=== PATIENT | female | born 1980 | race Caucasian/White ===

== ENCOUNTER 2024-05-11 19:23 | Outpatient (REF) | payer BC, OTHER, SELFPAY ==
[2024-05-15 00:11] LABS: Age Gdln ACOG Testing Note (.); HPV Aptima Negative (Negative); IGP, Aptima HPV, rfx 16/18,45 Note (.)
== END 2024-05-11 19:24 | disposition home or self-care (01) ==
LOC: LAB 19:23
PROVIDERS: Visit Provider Physician Assistant
DX: Z01.419 Encounter for gynecological examination (general) (routine) without abnormal findings (principal)
CPT/HCPCS: 87624; 88175

== ENCOUNTER 2025-05-17 20:01 | Outpatient (REF) | payer BC, OTHER, SELFPAY ==
--- OUTSIDE RECORDS SUMMARY | 2025-05-17 10:00 | XMS_ITS | Encounter Summary ---
Author Organization [facility] Address [address] [place] [address] Care Team Providers Care Rehab Director Occupational Therapist Name Role Phone Fatuma Leon MD Primary Care Provider [phone] Reason for Visit * Reason Comments Well Women Visit Encounter Details Date Type Department Care Team (Late st Contact Info) Description 05/17/2025 10:00 AM EDT Office Visit [facility] [address] [id number] Lacie Lan PA [address] [place] [address] Well woman exam with routine gynecological exam; Encounter for screening mammogram for malignant neoplasm of breast Social History Tobacco Use Types Packs/Day Years Used Date Smoking Tobacco: Never Assessed Comments Unknown Sex and Gender Information Value Date Recorded Sex Assigned at Female 05/09/2024 8:15 AM EDT Legal Sex Female 6:47 PM EDT Gender Identity Female 05/09/2024 8:15 AM EDT Sexual Orientation Straight 05/09/2024 8: 15 AM EDT documented as of this encounter Last Filed Vital Signs Vital Sign Reading Time Taken Comments Blood Pressure 110/82 05/17/2025 10:15 AM EDT Pulse - - Temperature - - Respiratory Rate - - Oxygen Saturation - - Inhaled Oxygen Concentration - - Weight 57.8 kg (127 lb 8 oz) 05/17/2025 10:15 AM EDT Height - - Body Mass Index 21.89 05/11/2024 10:08 AM EDT documented in this encounter Progress Notes * DON Maya - 05/17/2025 10:00 AM EDT Images from the original note were not included. Reason for Appointment: Patient ID: Atiya Castañeda is a 44 y.o. female who presents for Well Women Visit Patient presents today for Annual Exam. MEDICATIONS Current Outpatient Medications Medication Instructions amphetamine-dextroamphetamine XR (Adderall XR) 20 MG 24 hr capsule ALLERGIES No Known Allergies PROBLEMS Active Ambulatory Problems Diagnosis Date Noted No Active Ambulatory Problems Resolved Ambulatory Problems Diagnosis Date Noted No Resolved Ambulatory Problems No Additional Past Medical History HISTORY PAST MEDICAL HISTORY SOCIAL HISTORY History reviewed. No pertinent past medical history. Social History Tobacco Use Smoking status: Not on file Smokeless tobacco: Not on file Substance Use Topics Alcohol use: Not on file Drug use: Not on file FAMILY HISTORY No family history on file. SURGICAL HISTORY Past Surgical History: Procedure Laterality Date SALPINGECTOMY 2020 REVIEW OF SYSTEMS Review of Systems: Review of Systems Constitutional: Negative. HENT: Negative. Eyes: Negative. Respiratory: Negative. Cardiovascular: Negative. Gastrointestinal: Negative. Genitourinary: Negative. Musculoskeletal: Negative. Skin: Negative. Neurological: Negative. All other systems reviewed and are negative. Hematological: Negative. Endocrine: Negative. Allergic/Immunologic: Negative. OBJECTIVE Objective: Physical Exam Constitutional: Appearance: Normal appearance. Genitourinary: Genitourinary Comments: Cystic breasts,more pronounced at the above area Right Adnexa: not tender and no mass present. Left Adnexa: not tender and no mass present. No cervical discharge. Breasts: Breasts are soft. Right: Normal. Left: Normal. HENT: Head: Normocephalic. Nose: Nose normal. Mouth/Throat: Mouth: Mucous membranes are moist. Cardiovascular: Rate and Rhythm: Normal rate. Pulmonary: Effort: Pulmonary effort is normal. Chest: Abdominal: General: Bowel sounds are normal. Palpations: Abdomen is soft. Musculoskeletal: General: Normal range of motion. Cervical back: Normal range of motion. Neurological: General: No focal deficit present. Mental Status: She is alert. Skin: General: Skin is warm and dry. Psychiatric: Mood and Affect: Mood normal. Vitals and nursing note reviewed. Exam conducted with a regulatory process manager present. Vitals: Estimated body mass index is 21.89 kg/m?? as calculated from the following: Height as of 05/11/24: 5' 4 . Weight as of this encounter: 127 lb 8 oz. BP: 110/82 No LMP recorded. ASSESSMENT & PLAN ICD-10-CM 1. Well woman exam with routine gynecological exam Z01.419 THIN PREP TIS PAP AND HR HPV DNA 2. Encounter for screening mammogram for malignant neoplasm of breast Z12.31 Bilateral screening mammogram Bilateral screening mammogram Annual Exam: Patient presents today for an annual exam. Patient states she is doing well and has no complaints. Pap was obtained without difficulty. Orders Placed This Encounter Procedures Bilateral screening mammogram Patient given diagnostic mammogram due to family history and pt feels recent change to the right breast as diagramed Follow Up: Patient is to return in one year for annual unless needed otherwise. Documented by Nadege Funes NP on behalf of: DON Maya documented in this encounter Plan of Treatment Upcoming Encounters Date Type Department Care Team (Late st Contact Info) Description 05/23/2026 10:00 AM EDT Procedure Visit [facility] [address] [place] [address] Lacie Lan PA [address] [place] [address] Scheduled Orders Name Type Priority Associated Diagnoses Orde r Schedule THIN PREP TIS PAP AND HR HPV DNA Pathology and Cytology Routine Well woman exam with routine gynecological exam Ordered: 05/17/2025 Bilateral diagnostic mammogram Imaging Routine Well woman exam with routine gynecological exam Encounter for screening mammogram for malignant neoplasm of breast Expected: 05/17/2025 (Approximate), Expires: 07/17/2026 documented as of this encounter Visit Diagnoses Diagnosis Well woman exam with routine gynecological exam Routine gynecological examination Encounter for screening mammogram for malignant neoplasm of breast documented in this encounter Care Teams Rehab Director Occupational Therapist Relationship Specialty Start Date End Date Fatuma Leon MD PCP - General Family Medicine 05/11/24 documented as of this encounter
--- OUTSIDE RECORDS SUMMARY | 2025-05-17 20:05 | XMS_ITS | Clinical Summary ---
Author Organization [facility] Address [id number] [address] [place] [address] Care Team Providers Care Global Clinical Leader Name Role Phone Fatuma Leon MD Primary Care Provider [phone] Allergies No known active allergies Medications PNV no.95/ferrous fum/folic ac ( ORAL) Take by mouth. Active ferrous sulfate (IRON ORAL) Take by mouth. Active amphetamine-dex troamphetamine XR (ADDERALL XR) 15 mg 24 hr capsule Take 1 capsule (15 mg total) by mouth. 04/18/2024 Active Active Problems Problem Noted Date Diagnosed Date Elderly multigravida in first trimester 05/07/20 18 Family History Medical History Relation Name Comments Heart attack Father Hypertension Father Diabetes Maternal Grandfather Heart disease Maternal Grandfather Alzheimer's disease Maternal Grandmother Breast cancer Maternal Grandmother Heart disease Paternal Grandfather Cancer Paternal Grandmother BREAST Relation Name Status Comments Father Maternal Grandfather Maternal Grandmother Paternal Grandfather Paternal Grandmother Social History Tobacco Use Types Packs/Day Years Used Date Smoking Tobacco: Former Cigarettes Smokeless Tobacco: Never Tobacco Cessation:Counseling Given: Not Answered Alcohol Use Standard Drinks/Week Comments Yes 0 (1 standard drink = 0.6 oz pur e alcohol) 1 every couple weeks PHQ-2 Answer Date Recorded Total Score 0 05/19/2024 Childcare Answer Date Recorded Childcare Unknown 02/11/2019 Employment Answer Date Recorded Employment Unknown 02/11/2019 Hunger Screening Answer Date Recorded Within the past 12 months we worried whether our food would run out before we got money to buy more. Never True 05/19/2024 Within the past 12 months th e food we bought just didn't last and we didn't have money to get more. Never True 05/19/2024 Purpose - Life Answer Date Recorded Purpose and direction in life Unknown Comments No Sex and Gender Information Value Date Recorded Sex Assigned at Not on file Legal Sex Female 11:56 AM EDT Gender Identity Not on file Sexual Orientation Not on file Last Filed Vital Signs Vital Sign Reading Time Taken Comments Blood Pressure 118/68 05/19/2024 11:14 AM EDT Pulse 75 05/19/2024 11:14 AM EDT Temperature 36.9 C (98.4 F) 05/19/2024 11:14 AM EDT Respiratory Rate 16 02/06/2018 7:30 PM EDT Oxygen Saturation 97% 05/19/2024 11:14 AM EDT Inhaled Oxygen Concentration - - Weight 68.3 kg (150 lb 9.6 oz) 05/19/2024 11:14 AM EDT Height 162.6 cm (5' 4 ) 05/19/2024 11:14 AM EDT Body Mass Index 25.85 05/19/2024 11:14 AM EDT Plan of Treatment Health Maintenance Due Date Last Done Comments Adult BMI Follow Up Plan 2000 Pap Smear 2003 Influenza Vaccine 05/03/2025 Adult BMI Screening 05/19/2025 05/19/2024 Depression Screening 05/19/2025 05/19/2024 Tobacco Screening 05/19/2025 05/19/2024 DTaP,Tdap and Td Vaccines (2 - Td or Tdap) 05/29/2027 05/29/2017 Medical Devices Not on file Insurance [employer] Care Teams Global Clinical Leader Relationship Specialty Start Date End Date Fatuma Leon MD [address] [place] [id number] PCP - General Internal Medicine 05/19/24
--- OUTSIDE RECORDS SUMMARY | 2025-05-17 20:05 | XMS_ITS | Encounter Summary ---
Author Organization [facility] Address [address] [place] [address] Care Team Providers Care Railway Switch Operator Name Role Phone Fatuma Leon MD Primary Care Provider [phone] Encounter Details Date Type Department Care Team (Late Contact Info) Description 05/19/2024 Orders Only [facility] [address] [place] [id number] Corinne Dennis MA [address] [place] [address] Social History Tobacco Use Types Packs/Day Years Used Date Smoking Tobacco: Never Assessed Comments Unknown Sex and Gender Information Value Date Recorded Sex Assigned at Female 05/09/2024 8:15 AM EDT Legal Sex Female 6:47 PM EDT Gender Identity Female 05/09/2024 8:15 AM EDT Sexual Orientation Straight 05/09/2024 8: 15 AM EDT documented as of this encounter Plan of Treatment Upcoming Encounters Date Type Department Care Team (Late st Contact Info) Description 05/23/2026 10:00 AM EDT Procedure Visit [facility] [address] [place] [address] Lacie Lan PA [address] [place], [place] [id number] documented as of this encounter Procedures Procedure Name Priority Date/Time Associated Diagnosis Comments PAP SMEAR Routine 05/11/2024 12:00 AM EDT documented in this encounter Results * Pap Smear (05/11/2024 12:00 AM EDT) Swab Cervical swab / Unknown us [facility] ORDERABLES Final Re sult [facility] documented in this encounter Visit Diagnoses Not on filedocumented in this encounter Care Teams Railway Switch Operator Relationship Specialty Start Date End Date Fatuma Leon MD PCP - General Family Medicine 05/11/24 documented as of this encounter
--- OUTSIDE RECORDS SUMMARY | 2025-05-17 20:05 | XMS_ITS | Encounter Summary ---
Author Organization [facility] Address [address] [place] [address] Care Team Providers Care Rn Referral Name Role Phone Fatuma Leon MD Primary Care Provider [phone] Encounter Details Date Type Department Care Team (Latest Contact Info) Description 05/17/2025 Travel Social History Tobacco Use Types Packs/Day Years [...] 10:00 AM EDT Procedure Visit [facility] [address] [place] [phone] Lacie Lan PA [address] [place], [facility] documented as of this encounter Visit Diagnoses Not on filedocumented in this encounter Care Teams Rn Referral Relationship Specialty Start Date End Date Fatuma Leon MD PCP - General Family Medicine 05/11/24 documented as of this encounter
--- OUTSIDE RECORDS SUMMARY | 2025-05-17 20:05 | XMS_ITS | Clinical Summary ---
Author Organization [facility] Address [address] [place] [address] Care Team Providers Care Electronic Operator Name Role Phone Fatuma Leon MD Primary Care Provider [phone] Allergies No known active allergies Medications amphetamine-dex troamphetamine XR (Adderall XR) 20 MG 24 hr capsule 5 Active amphetamine-dex troamphetamine XR (Adderall XR) 15 MG 24 hr capsule Take 15 mg by mouth in the morning. 4 05/17/20 25 Discontinued Encounters Date Type Department Care Team Description 05/17/2025 10:00 [place] [phone] Lacie Lan PA Well woman exam with routine gynecological exam; Encounter for screening mammogram for malignant neoplasm of breast 05/17/2025 Travel 05/17/2025 Bamboo flowsheet [facility] [address] [place] [phone] Lacie Lan PA from Last 3 Months Social History Tobacco Use Types Packs/Day Years Used Date Smoking Tobacco: Never Assessed Comments Unknown Sex and Gender Information Value Date Recorded Sex Assigned at Female 05/09/2024 8:15 AM EDT Legal Sex Female 6:47 PM EDT Gender Identity Female 05/09/2024 8:15 AM EDT Sexual Orientation Straight 05/09/2024 8: 15 AM EDT Last Filed Vital Signs Vital Sign Reading Time Taken Comments Blood Pressure 110/82 05/17/2025 10:15 AM EDT Pulse - - Temperature - - Respiratory Rate - - Oxygen Saturation - - Inhaled Oxygen Concentration - - Weight 57.8 kg (127 lb 8 oz) 05/17/2025 10:15 AM EDT Height 162.6 cm (5' 4 ) 05/11/2024 10:08 AM EDT Body Mass Index 21.89 05/11/2024 10:08 AM EDT Plan of Treatment Upcoming Encounters Date Type Department Care Team (Late st Contact Info) Description 05/23/2026 10:00 AM EDT Procedure Visit [facility] [address] [address] Lacie Lan PA [address] [place], [place] [id number] Insurance [facility] MEDICA[employer] Care Teams Electronic Operator Relationship Specialty Start Date End Date Fatuma Leon MD PCP - General Family Medicine 05/11/24
--- OUTSIDE RECORDS SUMMARY | 2025-05-17 20:08 | XMS_ITS | CCD ---
Author Organization [facility] CliniSyid Care Team Providers Care Vocational Placement Specialist Name Role Phone LU, DR RODGERS Attending Unavailable LU, DR RODGERS Admitting Unavailable LU, DR RODGERS Primary Care Unavailable KARASIK, DR PEREZ Admitting Unavailable KARASIK, DR PEREZ Consulting Unavailable LU, DR RODGERS Primary Care Unavailable KARASIK, DR PEREZ Attending Unavailable WEST, DR MARCELINO Steven Consulting Unavailable LU, DR RODGERS Consulting Unavailable LU, DR RODGERS Attending Unavailable LU, DR RODGERS Admitting Unavailable LU, DR RODGERS Primary Care Unavailable KARASIK, DR PEREZ Consulting Unavailable LU, DR RODGERS Consulting Unavailable AGUBOSIMSCOOBY Consulting Unavailable LU, DR RODGERS Procedure Practitioner Unavailab le LU, DR RODGERS Attending Unavailable LU, DR RODGERS Admitting Unavailable LU, DR RODGERS Primary Care Unavailable LU, DR RODGERS Attending Unavailable LU, DR RODGERS Admitting Unavailable LU, DR RODGERS Primary Care Unavailable GARCÍA, JUSTA Consulting Unavailable RAKAN AREVALO Attending Unavailable RAKAN AREVALO Admitting Unavailable LU, DR RODGERS Primary Care Unavailable CHRISTOPHER, DR MARCELINO Steven Consulting Unavailable LU, DR RODGERS Consulting Unavailable RAKAN AREVALO Consulting Unavailable KARASIK, DR PEREZ Admitting Unavailable KARASIK, DR PEREZ Consulting Unavailable LU, DR RODGERS Primary Care Unavailable KARASIK, DR PEREZ Attending Unavailable KARASIK, DR PEREZ Admitting Unavailable KARASIK, DR PEREZ Consulting Unavailable LU, DR RODGERS Primary Care Unavailable KARASIK, DR PEREZ Attending Unavailable KARASIK, DR PEREZ Admitting Unavailable LU, DR RODGERS Primary Care Unavailable KARLUCASK, DR PEREZ Attending Unavailable LU, DR RODGERS Consulting Unavailable LU, DR RODGERS Attending Unavailable LU, DR RODGERS Primary Care Unavailable LU, DR RODGERS Admitting Unavailable LU, DR RODGERS Consulting Unavailable LU, DR RODGERS Attending Unavailable LU, DR RODGERS Primary Care Unavailable LU, DR RODGERS Admitting Unavailable ZIEBER, DR DANGELO Torres Consulting Unavailable KARASIK, DR PEREZ Admitting Unavailable KARASIK, DR PEREZ Consulting Unavailable LU, DR RODGERS Primary Care Unavailable MISC, DOCTOR Referring Unavailable KARASIK, DR PEREZ Attending Unavailable LU, DR RODGERS Attending Unavailable LU, DR RODGERS Admitting Unavailable LU, DR RODGERS Primary Care Unavailable LU, DR RODGERS Attending Unavailable LU, DR RODGERS Primary Care Unavailable LU, DR RODGERS Admitting Unavailable LU, DR RODGERS Consulting Unavailable LU, DR RODGERS Attending Unavailable LU, DR RODGERS Admitting Unavailable LU, DR RODGERS Primary Care Unavailable ANSON DC Consulting Unavailable LU, DR RODGERS Admitting Unavailable LU, DR RODGERS Primary Care Unavailable LU, DR RODGERS Attending Unavailable LACIE MAHONEY Attending Unavailable JUAN, FATUMA Bass Attending Unavailable VINCENT HARDING Referring Unavailable FATUMA MARTINEZ Primary Care Unavailable Fatuma Martinez MD Primary Care Provider Unavailable Primary Care Provider Unavailabl e Fatuma Martinez MD Primary Care Provider [phone] Fatuma Martinez MD Primary Care Provider [phone] Medications Current Medications Medication Drug Class(es) Dates Sig (Normalized) Sig (Original) 24 hr amphetamine aspartate 5 mg / amphetamine sulfate 5 mg / dextroamphetamine saccharate 5 mg / dextroamphetamine sulfate 5 mg extended release oral capsule (10 sources) Central Nervous System Stimulant Start: 05-13-2025 amphetamine-dext roamphetamine XR (Adderall XR) 20 MG 24 hr capsule 05/13/2025 Active Start: 04-18-2024 End: 05-17-2025 take 1 capsule by mouth in the morning, then take 1 capsule by mouth every twenty-four hours amphetamine-dextroamphetamine XR (Addera ll XR) 15 MG 24 hr capsule Take 15 mg by mouth in the morning. 04/18/2024 05/17/2025 Discontinued ferrous sulfate (1 source) ferrous sulfate (IRON ORAL) Take by mouth. Active PNV no.95/ferrous fum/folic ac ( ORAL) (1 source) PNV no.95/ferrou s fum/folic ac ( ORAL) Take by mouth. Active Problems Active Problems Problem Classification Problem Date Documented Date Episodic/Chronic Coagulation and hemorrhagic disorders (1 source) Thrombocytopenia, unspecified; Translations: [THROMBOCYTOPENIA UNSPECIFIED] Onset: 05-11-2021 Chronic Contraceptive and procreative management (5 sources) Encounter for sterilization; Translations: [ENCOUNTER FOR STERILIZATION] Onset: 02-10-2021 Episodic Other screening for suspected conditions (not mental disorders or infectious disease) (17 sources) Encounter for screening for malignant neoplasm of cervix; Translations: [Encounter for screening for Streptococcus B] Onset: 10-05-2020 Episodic Other skin disorders (1 source) Sebaceous cyst; Translations: [Sebaceous cyst] Onset: 05-19-2024 Episodic Substance-related disorders (1 source) Nicotine dependence, cigarettes, uncomplicated; Translations: [NICOTINE DEPEND CIGARETTES UNCOMP] Onset: 05-11-2021 Chronic Unclassified (1 source) PERSONAL HISTORY OF COVID-19; Translations: [PERSONAL HISTORY OF COVID-19] Onset: 05-11-2021 Unclassified (1 source) Establish Care Onset: 05-19-2024 Unclassified (1 source) Hair/Scalp Problem Onset: 05-19-2024 Past or Other Problems Problem Classification Problem Date Documented Date Episodic/Chronic Diabetes or abnormal glucose tolerance complicating ; childbirth; or the puerperium (10 sources) Gestational diabetes mellitus in childbirth, unspecified control; Translations: [Gestational diabetes mellitus in , unspecified control] Onset: 12-02-2020 Episodic Immunizations and screening for infectious disease (3 sources) Encounter for screening for human papillomavirus (HPV); Translations: [Exposure to sexually transmissible disorder] Onset: 07-29-2021 05-11-2024 Episodic Mood disorders (1 source) Mood disorders Onset: 05-19-2024 05-19-2024 OB-related trauma to perineum and vulva (1 source) First degree perineal laceration during delivery; Translations: [FIRST DEG PERINEAL LAC DUR DELIV] Onset: 01-18-2021 Episodic Other complications of (4 sources) Supervision of elderly multigravida, third trimester; Translations: [SUP ELDER MULTIGRAVIDA THIRD TRI] Onset: 01-04-2021 Episodic Other complications of (1 source) Maternal care for excessive growth, third trimester, not applicable or unspecified; Translations: [MAT CARE EXCSS FTL GRTH 3RD TRI UNS] Onset: 12-27-2020 Episodic Other complications of (1 source) Multigravida of advanced maternal age; Translations: [Supervision of elderly multigravida, first trimester] Onset: 05-07-2018 05-07-2018 Episodic Other and delivery including normal (11 sources) Encounter for routine follow-up; Translations: [Encounter for supervision of normal , unspecified, third trimester] Onset: 09-14-2020 Episodic Other skin disorders (1 source) Sebaceous cyst of skin; Translations: [Sebaceous cyst] 05-19-2024 Episodic Residual codes; unclassified (1 source) 39 weeks gestation of ; Translations: [39 WEEKS GESTATION OF ] Onset: 01-18-2021 Episodic Residual codes; unclassified (1 source) 38 weeks gestation of ; Translations: [38 WEEKS GESTATION OF ] Onset: 01-12-2021 Episodic Residual codes; unclassified (1 source) 36 weeks gestation of ; Translations: [36 WEEKS GESTATION OF ] Onset: 12-27-2020 Episodic Umbilical cord complication (1 source) Labor and delivery complicated by cord around neck, without compression, not applicable or unspecified; Translations: [L AND D COMP CORD NECK NO COMPRS NA/UNS] Onset: 01-18-2021 Episodic Results Test Name Value Interpretation Reference Range Facility IGP,APTIMA HPV,AGE GDLNon AGE GDLN ACOG TESTING Note . [facility] Comment on above: TESTS RESULT FLAG UN ITS REF RANGE LAB Clinician Provided Cytology Information Source.............Cervix;Endocervix No. of containers..01 ThinPrep Vial Age Algo ACOG Alie... 32 FLAG LEGEND: L-Low Normal,H-High Normal,LL-Alert Low,HH-Alert High <-Panic Low,>-Panic High,A-Abnormal,AA-Critical Abnormal Performed at: 01 =[address] [id number] Mimi Montes MD, HPV APTIMA Negative Negative [facility] Comment on above: This nucleic acid am plification test detects fourteen high- risk HPV types (16,18,31,33,35,39,45,51,52,56,58,59,66,68) without differentiation. Performed at: =[address] [id number] [employer]: Mimi Montes MD, Phone: [phone] Performed at: [address] [id number] [employer]: Mimi Montes MD, Phone: [phone] IGP, APTIMA HPV, RFX 16/18,45 Note . [facility] Comment on above: TESTS RESULT FLAG UN ITS REF RANGE LAB DIAGNOSIS: 02 NEGATIVE FOR INTRAEPITHELIAL LESION OR MALIGNANCY. Specimen adequacy: 02 Satisfactory for evaluation. Endocervical and/or squamous metaplastic cells (endocervical component) are present. Performed by: 02 Selvin Ravi [employer] Header (ASCP) . 02 Note: Note 02 The Pap smear is a screening test designed to aid in the detection of premalignant and malignant conditions of the uterine cervix. It is not a diagnostic procedure and should not be used as the sole means of detecting cervical cancer. Both false-positive and false-negative reports do occur. Test Methodology: Note 02 This liquid based ThinPrep(R) pap test was screened with the use of an image guided system. HPV Genotype Reflex Note 02 Criteria not met, HPV Genotype not performed. FLAG LEGEND: L-Low Normal,H-High Normal,LL-Alert Low,HH-Alert High <-Panic Low,>-Panic High,A-Abnormal,AA-Critical Abnormal Performed at: [address] [id number] Mimi Montes MD, BRUSH-SPATULA CERVIX ENDOCERVIX [facility] URETHRITIS/DISCHARGE PLUS VA GINITIS (HTRX)on 05-12-2024 ATOPOBIUM VAGINAE 0.000 [facility] ATOPOBIUM VAGINAE Not detected [facility] BVAB 2,3 (BACTERIAL VAGINOSIS ASSOCIATED BACTERIA 2, 3); MOBILUNCUS SPP 0.000 [facility] BVAB 2,3 (BACTERIAL VAGINOSIS ASSOCIATED BACTERIA 2, 3); MOBILUNCUS SPP Not detected [facility] MATTEO ALBICANS, PARAPSILOSIS, TROPICALIS 0.000 [facility] MATTEO ALBICANS, PARAPSILOSIS, TROPICALIS Not detected [facility] MATTEO GLABRATA 0.000 [facility] MATTEO GLABRATA Not detected [facility] MATTEO KRUSEI 0.000 [facility] MATTEO KRUSEI Not detected [facility] CHLAMYDIA TRACHOMATIS 0.000 [facility] CHLAMYDIA TRACHOMATIS Not detected [facility] GARDNERELLA VAGINALIS 0.000 [facility] GARDNERELLA VAGINALIS Not detected [facility] MEGASPHAERA (TYPES 1, 2) 0.000 [facility] MEGASPHAERA (TYPES 1, 2) Not detected [facility] MYCOPLASMA GENITALIUM 0.000 [facility] MYCOPLASMA GENITALIUM Not detected [facility] NEISSERIA GONORRHOEAE 0.000 [facility] NEISSERIA GONORRHOEAE Not detected [facility] TRICHOMONAS VAGINALIS 0.000 [facility] TRICHOMONAS VAGINALIS Not detected [facility] PAP ACOG PANEL 2: 30 to 65on 07-26-2021 . . Normal [facility] Comment on above: Result Comment: Perf ormed at: WB Performed By: #### [id number] #### [facility] [address] [address] [address] Patrick Araya Age Gdln ACOG Testing 30-65 [facility] Comment on above: Performed By: #### [id number] #### [facility] [address] [place] [address] Dr. Patrick Araya DIAGNOSIS: Comment Normal [facility] Comment on above: Result Comment: NEGA TIVE FOR INTRAEPITHELIAL LESION OR MALIGNANCY. Performed at: WB Performed By: #### [id number] #### [facility] [address] [address] [address] Patrick Araya HPV Aptima Negative Normal [facility] Comment on above: Result Comment: This nucleic acid amplification test detects fourteen high-risk HPV types (16,18,31,33,35,39,45,51,52,56,58,59,66,68) without differentiation. Performed at: =G Performed By: #### [id number] #### [facility] [address] [address] [address] Patrick Araya Methodology: Comment [facility] Comment on above: Result Comment: This liquid based ThinPrep(R) pap test was screened with the use of an image guided system. Performed at: WB Performed By: #### [id number] #### [facility] [address] [address] [address] Patrick Araya Note: Comment Normal [facility] Comment on above: Result Comment: The Pap smear is a screening test designed to aid in the detection of premalignant and malignant conditions of the uterine cervix. It is not a diagnostic procedure and should not be used as the sole means of detecting cervical cancer. Both false-positive and false-negative reports do occur. . Performed at: WB Performed By: #### [id number] #### [facility] [address] [place] [address] Dr. Patrick Araya Performed by: Comment Normal [place] Comment on above: Result Comment: Wendy Yeager, Apple Packing Header (ASCP) Performed at: WB Performed By: #### [id number] #### [facility] [address] [place] [address] Dr. Patrick Araya Specimen adequacy: Comment Normal [facility] Comment on above: Result Comment: Sati sfactory for evaluation. Endocervical and/or squamous metaplastic cells (endocervical component) are present. Performed at: WB Performed By: #### [id number] #### [facility] [address] [place] [address] Dr. Patrick Araya CBC AUTO DIFFon 02-10-2021 BASO # 0.0 103/ul Normal 0.0-0.1 [facility] Comment on above: Performed By: #### C BC #### [facility] [address] [place] [address] Marina Molly Basophils/100 WBC (Bld) 0.6 % Normal 0.2-2.0 [facility] Comment on above: Performed By: #### C BC #### [facility] [address] [place] [address] Marina Molly EO # 0.1 103/ul Normal 0.0-0.7 [facility] Comment on above: Performed By: #### C BC #### [facility] [address] [place] [address] Marina Molly Eosinophils/100 WBC (Bld) 2.2 % Normal 0.9-7.0 [facility] Comment on above: Performed By: #### C BC #### [facility] [address] [place] [address] Marina Molly Erythrocyte distribution width (RBC) [Ratio] 13.7 % Normal 11.0-15.0 [facility] Comment on above: Performed By: #### C BC #### [facility] [address] [place] [address] Marina Barnes Hematocrit (Bld) [Volume fraction] 38.1 % Normal 36.0-48.0 [facility] Comment on above: Performed By: #### C BC #### [facility] [address] [place] [address] Marina Barnes Hemoglobin (Bld) [Mass/Vol] 11.9 g/dL Critically low 12.0-16.0 [facility] Comment on above: Performed By: #### C BC #### [facility] [address] [place] [address] Marina Barnes IG # 0.00 10e3/ul Normal 0.00-0.03 [facility] Comment on above: Performed By: #### C BC #### [facility] [address] [place] [address] Marina Barnes IG % 0.0 % Normal 0.0-0.5 [facility] Comment on above: Performed By: #### C BC #### [facility] [address] [place] [address] Marina Barnes LYMPH # 1.9 103/ul Normal 1.2-3.8 [facility] Comment on above: Performed By: #### C BC #### [facility] [address] [place] [address] Marina Barnes Lymphocytes/100 WBC (Bld) 37.7 % Normal 20.5-60.0 [facility] Comment on above: Performed By: #### C BC #### [facility] [address] [place] [address] Marina Barnes MANUAL DIFF REQ NO Normal [facility] Comment on above: Performed By: #### C BC #### [facility] [address] [place] [address] Marina Barnes MCH (RBC) [Entitic mass] 25.3 pg Critically low 26.7-34.0 [facility] Comment on above: Performed By: #### C BC #### [facility] [address] [id number] Marina Barnes MCHC (RBC) [Mass/Vol] 31.2 g/dL Normal 29.9-35.2 [facility] Comment on above: Performed By: #### C BC #### [facility] [address] [id number] Marina Barnes MCV (RBC) [Entitic vol] 80.9 fL Critically low 81.0-99.0 [facility] Comment on above: Performed By: #### C BC #### [facility] [address] [place] [address] Marina Barnes MONO # 0.3 103/ul Normal 0.3-0.8 [facility] Comment on above: Performed By: #### C BC #### [facility] [address] [place] [address] Marina Barnes Monocytes/100 WBC (Bld) 6.6 % Normal 1.7-12.0 [facility] Comment on above: Performed By: #### C BC #### [facility] [address] [place], [place] [id number] Marina Barnes NEUT # 2.7 103/ul Normal 1.4-6.5 [facility] Comment on above: Performed By: #### C BC #### [facility] [address] [place], [place] [id number] Marina Barnes Neutrophils/100 WBC (Bld) 52.9 % Normal 43.0-75.0 [facility] Comment on above: Performed By: #### C BC #### [facility] [address] [place], [place] [id number] Marina Barnes Platelet mean volume (Bld) [Entitic vol] 9.0 fL Critically low 9.5-13.5 [facility] Comment on above: Performed By: #### C BC #### [facility] [address] [place], [place] [id number] Marina Molly PLT 172 103/ul Normal 150-450 [facility] Comment on above: Performed By: #### C BC #### [facility] [address] [place] [address] Marina Molly RBC 4.71 106/ul Normal 4.20-5.40 [facility] Comment on above: Performed By: #### C BC #### [facility] [address] [place], [place] [id number] Marina Molly WBC 5.0 103/ul Normal 4.0-11.0 [facility] Comment on above: Performed By: #### C BC #### [facility] [address] [place], [place] [id number] Marina Molly PREG QUANT HCGon 02-10-2021 HCG QUANT <1 Normal [facility] Comment on above: Performed By: #### C BC #### [facility] [address] [place] [address] Marina Molly HCG RANGE SEE BELOW Normal [facility] Comment on above: Result Comment: 5-50 0-1 WEEK 40-300 1-2 WEEKS 100-1,000 2-3 WEEKS 500-6,000 3-4 WEEKS 5,000-200,000 1-2 MONTHS 10,000-100,000 2-3 MONTHS 3,000-50,000 2ND TRIMESTER 1,000-50,000 3RD TRIMESTER Performed By: #### C BC #### [facility] [address] [place] [address] Marina Molly BNPon 02-06-2021 Natriuretic peptide B (Bld) [Mass/Vol] 83.0 pg/mL Normal <=450.0 [facility] Comment on above: Performed By: #### C BC #### [facility] [address] [place], [place] [id number] Marina Molly CBC AUTO DIFFon 02-06-2021 BASO # 0.0 103/ul Normal 0.0-0.1 [facility] Comment on above: Performed By: #### C BC #### [facility] [address] [place], [place] [id number] Marina Molly Basophils/100 WBC (Bld) 0.3 % Normal 0.2-2.0 [facility] Comment on above: Performed By: #### C BC #### [facility] [address] [place] [address] Marina Molly EO # 0.1 103/ul Normal 0.0-0.7 [facility] Comment on above: Performed By: #### C BC #### [facility] [address] [place], [place] [id number] Marina Omlly Eosinophils/100 WBC (Bld) 1.4 % Normal 0.9-7.0 [facility] Comment on above: Performed By: #### C BC #### [facility] [address] [place] [address] Marina Molly Erythrocyte distribution width (RBC) [Ratio] 13.8 % Normal 11.0-15.0 [facility] Comment on above: Performed By: #### C BC #### [facility] [address] [place] [address] Marina Molly Hematocrit (Bld) [Volume fraction] 39.9 % Normal 36.0-48.0 [facility] Comment on above: Performed By: #### C BC #### [facility] [address] [place] [address] Marina Molly Hemoglobin (Bld) [Mass/Vol] 12.7 g/dL Normal 12.0-16.0 [facility] Comment on above: Performed By: #### C BC #### [facility] [address] [place] [address] Marina Molly IG # 0.02 10e3/ul Normal 0.00-0.03 [facility] Comment on above: Performed By: #### C BC #### [facility] [address] [place] [address] Marian Molly IG % 0.3 % Normal 0.0-0.5 [facility] Comment on above: Performed By: #### C BC #### [facility] [address] [place] [address] Marina Molly LYMPH # 1.5 103/ul Normal 1.2-3.8 [facility] Comment on above: Performed By: #### C BC #### [facility] [address] [place], [place] [phone] Marina Molly Lymphocytes/100 WBC (Bld) 18.9 % Critically low 20.5-60.0 [facility] Comment on above: Performed By: #### C BC #### [facility] [address] [place], [place] [id number] Marina Molly MANUAL DIFF REQ NO Normal [facility] Comment on above: Performed By: #### C BC #### [facility] [address] [place], [place] [phone] Marina Molly MCH (RBC) [Entitic mass] 25.6 pg Critically low 26.7-34.0 [facility] Comment on above: Performed By: #### C BC #### [facility] [address] [place] [address] Marinadionisio Barnes MCHC (RBC) [Mass/Vol] 31.8 g/dL Normal 29.9-35.2 [facility] Comment on above: Performed By: #### C BC #### [facility] [address] [place] [address] Marinadionisio Estradaen MCV (RBC) [Entitic vol] 80.3 fL Critically low 81.0-99.0 [facility] Comment on above: Performed By: #### C BC #### [facility] [address] [place] [address] Marina Molly MONO # 0.5 103/ul Normal 0.3-0.8 [facility] Comment on above: Performed By: #### C BC #### [facility] [address] [place] [address] Marina Molly Monocytes/100 WBC (Bld) 6.3 % Normal 1.7-12.0 [facility] Comment on above: Performed By: #### C BC #### [facility] [address] [place], [place] [phone] Marina Molly NEUT # 5.6 103/ul Normal 1.4-6.5 [facility] Comment on above: Performed By: #### C BC #### [facility] [address] [place], [place] [id number] Marina Molly Neutrophils/100 WBC (Bld) 72.8 % Normal 43.0-75.0 [facility] Comment on above: Performed By: #### C BC #### [facility] [address] [place] [address] Marina Barnes Platelet mean volume (Bld) [Entitic vol] 9.1 fL Critically low 9.5-13.5 [facility] Comment on above: Performed By: #### C BC #### [facility] [address] [place] [address] Marina Barnes PLT 200 103/ul Normal 150-450 [facility] Comment on above: Performed By: #### C BC #### [facility] [address] [place] [address] Marina Barnes RBC 4.97 106/ul Normal 4.20-5.40 [facility] Comment on above: Performed By: #### C BC #### [facility] [address] [place] [address] Marina Barnes WBC 7.7 103/ul Normal 4.0-11.0 [facility] Comment on above: Performed By: #### C BC #### [facility] [address] [place], [place] [id number] Marina Barnes D-DIMERon 02-06-2021 D-DIMER 1.30 mg/L FEU Critically high 0.19-0.50 [facility] Comment on above: Performed By: #### D RUGRPD #### [facility] [address] [place] [address] Marina Molly D-DIMER COMMENTS SEE BELOW Normal [facility] Comment on above: Result Comment: Incr eases in D-Dimer concentration observed with thromboembolic events can be variable due to localization, size, and age of the thrombus. Therefore, a thromboembolic event cannot be diagnosed with certainty on the basis of the reference range. D-Dimers may also be elevated for a variety of disorders including: advanced age, , coronary disease, cancer, liver disease, infection, inflammation, hematoma, DIC, trauma, post-surgery, diabetes, thrombolytic or anticoagulant therapy, stress, and generalized hospitalization. Performed By: #### D RUGRPD #### [facility] [address] [place] [address] Marina Molly PROF 14(COMP METB)on 021 Albumin [Mass/Vol] 3.4 g/dL Critically low 3.5-5.0 [facility] Comment on above: Performed By: #### C BC #### [facility] [address] [place], [place] [id number] Marina Molly Albumin/Globulin [Mass ratio] 0.8 {ratio} Normal [facility] Comment on above: Performed By: #### C BC #### [facility] [facility] [address] [place], [place] [id number] Marina Molly ALP [Catalytic activity/Vol] 86 U/L Normal 38-126 [facility] Comment on above: Performed By: #### C BC #### [facility] [address] [place] [address] Marina Molly ALT [Catalytic activity/Vol] 35 U/L Normal 9-52 [facility] Comment on above: Performed By: #### C BC #### [facility] [address] [place], [place] [id number] Marina Molly Anion gap [Moles/Vol] 13.9 mmol/L Normal [facility] Comment on above: Performed By: #### C BC #### [facility] [address] [place], [place] [id number] Marina Molly AST [Catalytic activity/Vol] 22 U/L Normal 14-36 [facility] Comment on above: Performed By: #### C BC #### [facility] [address] [place], [place] [phone] Marina Molly Bilirubin [Mass/Vol] 0.4 mg/dL Normal 0.2-1.3 [facility] Comment on above: Performed By: #### C BC #### [facility] [address] [place], [place] [id number] Marina Molly Calcium [Mass/Vol] 8.4 mg/dL Normal 8.4-10.2 [facility] Comment on above: Performed By: #### C BC #### [facility] [address] [place] [id number] Marina Molly Chloride [Moles/Vol] 104 mmol/L Normal 98-107 [facility] Comment on above: Performed By: #### C BC #### [facility] [address] [id number] Marina Molly CO2 [Moles/Vol] 27.1 mmol/L Normal 22.0-30.0 [facility] Comment on above: Performed By: #### C BC #### [facility] [address] [place], [place] [phone] Marina Molly Creatinine [Mass/Vol] 0.68 mg/dL Normal 0.52-1.04 [facility] Comment on above: Performed By: #### C BC #### [facility] [address] [place] [address] Marina Molly EGFR-AF NIUEAN >60 Normal >=60 [facility] Comment on above: Performed By: #### C BC #### [facility] [address] [place] [address] Marina Molly EGFR-NON AF NIUEAN >60 Normal >=60 [facility] Comment on above: Performed By: #### C BC #### [facility] [address] [place], [place] [phone] Marina Molly Globulin (S) [Mass/Vol] 4.1 g/dL Normal [facility] Comment on above: Performed By: #### C BC #### [facility] [address] [place] [address] Marina Molly Glucose [Mass/Vol] 86 mg/dL Normal 74-106 [facility] Comment on above: Performed By: #### C BC #### [facility] [address] [place], [place] [phone] Marina Molly Potassium [Moles/Vol] 4.0 mmol/L Normal 3.4-5.0 [facility] Comment on above: Performed By: #### C BC #### [facility] [address] [place] [address] Marina Molly Protein [Mass/Vol] 7.5 g/dL Normal 6.1-8.2 [facility] Comment on above: Performed By: #### C BC #### [facility] [address] [place], [place] [address] Marina Molly Sodium [Moles/Vol] 141 mmol/L Normal 137-145 [facility] Comment on above: Performed By: #### C BC #### [facility] [address] [place], [place] [address] Marina Molly Urea nitrogen [Mass/Vol] 14.0 mg/dL Normal 7.0-17.0 [facility] Comment on above: Performed By: #### C BC #### [facility] [address] [place] [phone] Marina Molly Urea nitrogen/Creatinine [Mass ratio] 20.6 mg/mg Normal [facility] Comment on above: Performed By: #### C BC #### [facility] [address] [place] [id number] Marina Molly CBC AUTO DIFFon 01-07-2021 BASO # 0.0 103/ul Normal 0.0-0.1 [facility] Comment on above: Performed By: #### C BC #### [facility] [address] [place] [address] Marina Molly Basophils/100 WBC (Bld) 0.4 % Normal 0.2-2.0 [facility] Comment on above: Performed By: #### C BC #### [facility] [address] [place] [address] Marina Molly EO # 0.2 103/ul Normal 0.0-0.7 [facility] Comment on above: Performed By: #### C BC #### [facility] [address] [place] [phone] Marina Molly Eosinophils/100 WBC (Bld) 1.9 % Normal 0.9-7.0 [facility] Comment on above: Performed By: #### C BC #### [facility] [address] [place] [address] Marina Molly Erythrocyte distribution width (RBC) [Ratio] 13.9 % Normal 11.0-15.0 [facility] Comment on above: Performed By: #### C BC #### [facility] [address] [place] [address] Marina Molly Hematocrit (Bld) [Volume fraction] 28.8 % Critically low 36.0-48.0 [facility] Comment on above: Performed By: #### C BC #### [facility] [address] [place] [address] Marina Molly Hemoglobin (Bld) [Mass/Vol] 9.2 g/dL Critically low 12.0-16.0 [facility] Comment on above: Performed By: #### C BC #### [facility] [address] [place] [address] Marina Molly IG # 0.05 10e3/ul Critically high 0.00-0.03 [facility] Comment on above: Performed By: #### C BC #### [facility] [address] [place] [address] Marina Molly IG % 0.6 % Critically high 0.0-0.5 [facility] Comment on above: Performed By: #### C BC #### [facility] [address] [place] [address] Marina Molly LYMPH # 1.8 103/ul Normal 1.2-3.8 [facility] Comment on above: Performed By: #### C BC #### [facility] [address] [place] [address] Marina Barnes Lymphocytes/100 WBC (Bld) 23.4 % Normal 20.5-60.0 [facility] Comment on above: Performed By: #### C BC #### [facility] [address] [place] [address] Marina Barnes MANUAL DIFF REQ NO Normal [facility] Comment on above: Performed By: #### C BC #### [facility] [address] [place], [place] [phone] Marinadionisio Barnes MCH (RBC) [Entitic mass] 26.0 pg Critically low 26.7-34.0 [facility] Comment on above: Performed By: #### C BC #### [facility] [address] [id number] Marinadionisio Barnes MCHC (RBC) [Mass/Vol] 31.9 g/dL Normal 29.9-35.2 [facility] Comment on above: Performed By: #### C BC #### [facility] [address] [id number] Marinadionisio Barnes MCV (RBC) [Entitic vol] 81.4 fL Normal 81.0-99.0 [facility] Comment on above: Performed By: #### C BC #### [facility] [address] [place], [place] [phone] Marina Molly MONO # 0.7 103/ul Normal 0.3-0.8 [facility] Comment on above: Performed By: #### C BC #### [facility] [address] [place], [place] [phone] Marina Molly Monocytes/100 WBC (Bld) 9.3 % Normal 1.7-12.0 [facility] Comment on above: Performed By: #### C BC #### [facility] [address] [place], [place] [phone] Marina Molly NEUT # 5.0 103/ul Normal 1.4-6.5 [facility] Comment on above: Performed By: #### C BC #### [facility] [address] [place], [place] [phone] Marina Molly Neutrophils/100 WBC (Bld) 64.4 % Normal 43.0-75.0 [facility] Comment on above: Performed By: #### C BC #### [facility] [address] [place], [place] [phone] Marina Molly Platelet mean volume (Bld) [Entitic vol] 10.1 fL Normal 9.5-13.5 [facility] Comment on above: Performed By: #### C BC #### [facility] [address] [place], [place] [phone] Marina Molly PLT 97 103/ul Critically low 150-450 [facility] Comment on above: Performed By: #### C BC #### [facility] [address] [place], [place] [phone] Marina Molly RBC 3.54 106/ul Critically low 4.20-5.40 [facility] Comment on above: Performed By: #### C BC #### [facility] [address] [place], [place] [phone] Marina Molly WBC 7.7 103/ul Normal 4.0-11.0 [facility] Comment on above: Performed By: #### C BC #### [facility] [address] [place], [place] [phone] Marina Molly CBC AUTO DIFFon 01-06-2021 BASO # 0.0 103/ul Normal 0.0-0.1 [facility] Comment on above: Performed By: #### C BC #### [facility] [address] [place], [place] [phone] Marina Molly Basophils/100 WBC (Bld) 0.4 % Normal 0.2-2.0 [facility] Comment on above: Performed By: #### C BC #### [facility] [address] [place], [place] [phone] Marina Molly EO # 0.1 103/ul Normal 0.0-0.7 [facility] Comment on above: Performed By: #### C BC #### [facility] [address] [place], [place] [phone] Marina Molly Eosinophils/100 WBC (Bld) 1.1 % Normal 0.9-7.0 [facility] Comment on above: Performed By: #### C BC #### [facility] [address] [place], [place] [phone] Marina Molly Erythrocyte distribution width (RBC) [Ratio] 13.8 % Normal 11.0-15.0 [facility] Comment on above: Performed By: #### C BC #### [facility] [address] [place], [place] [phone] Marina Molly Hematocrit (Bld) [Volume fraction] 32.1 % Critically low 36.0-48.0 [facility] Comment on above: Performed By: #### C BC #### [facility] [address] [place], [place] [phone] Marina Molly Hemoglobin (Bld) [Mass/Vol] 10.3 g/dL Critically low 12.0-16.0 [facility] Comment on above: Performed By: #### C BC #### [facility] [address] [place], [place] [address] Marinadionisio Barnes IG # 0.07 10e3/ul Critically high 0.00-0.03 [facility] Comment on above: Performed By: #### C BC #### [facility] [address] [id number] Marina Molly IG % 0.9 % Critically high 0.0-0.5 [facility] Comment on above: Performed By: #### C BC #### [facility] [address] [place] [address] Marinadionisio Barnes LYMPH # 1.7 103/ul Normal 1.2-3.8 [facility] Comment on above: Performed By: #### C BC #### [facility] [address] [place] [address] aMrina Barnes Lymphocytes/100 WBC (Bld) 20.8 % Normal 20.5-60.0 [facility] Comment on above: Performed By: #### C BC #### [facility] [address] [place], [place] [phone] Marina Molly MANUAL DIFF REQ NO Normal [facility] Comment on above: Performed By: #### C BC #### [facility] [address] [place] [address] Marina Molly MCH (RBC) [Entitic mass] 25.9 pg Critically low 26.7-34.0 [facility] Comment on above: Performed By: #### C BC #### [facility] [address] [place] [address] Marinadionisio Barnes MCHC (RBC) [Mass/Vol] 32.1 g/dL Normal 29.9-35.2 [facility] Comment on above: Performed By: #### C BC #### [facility] [address] [place] [address] Marinadionisio Barnes MCV (RBC) [Entitic vol] 80.9 fL Critically low 81.0-99.0 [facility] Comment on above: Performed By: #### C BC #### [facility] [address] [place], [place] [address] Marina Estradaen MONO # 0.8 103/ul Normal 0.3-0.8 [facility] Comment on above: Performed By: #### C BC #### [facility] [address] [phone] Marina Estradaen Monocytes/100 WBC (Bld) 10.2 % Normal 1.7-12.0 [facility] Comment on above: Performed By: #### C BC #### [facility] [address] [phone] Marina Molly NEUT # 5.4 103/ul Normal 1.4-6.5 [facility] Comment on above: Performed By: #### C BC #### [facility] [address] [phone] Marina Estradaen Neutrophils/100 WBC (Bld) 66.6 % Normal 43.0-75.0 [facility] Comment on above: Performed By: #### C BC #### [facility] [address] [phone] Marina Barnes Platelet mean volume (Bld) [Entitic vol] 9.7 fL Normal 9.5-13.5 [facility] Comment on above: Performed By: #### C BC #### [facility] [address] [id number] Marina Molly PLT 117 103/ul Critically low 150-450 [facility] Comment on above: Performed By: #### C BC #### [facility] [address] [place], [place] [address] Marina Molly RBC 3.97 106/ul Critically low 4.20-5.40 [facility] Comment on above: Performed By: #### C BC #### [facility] [address] [phone] Marina Molly WBC 8.2 103/ul Normal 4.0-11.0 [facility] Comment on above: Performed By: #### C BC #### [facility] [address] [place] [address] Marina Molly DRUG SCREEN RAPID (URINE)on 01-06-2021 AMP Negative Normal NEGATIVE [facility] Comment on above: Performed By: #### D RUGRPD #### [facility] [address] [place] [address] Marina Molly BAR Negative Normal NEGATIVE [facility] Comment on above: Performed By: #### D RUGRPD #### [facility] [address] [place] [address] Marina Molly BUP Negative Normal NEGATIVE [facility] Comment on above: Performed By: #### D RUGRPD #### [facility] [address] [place] [address] Marina Molly BZO Negative Normal NEGATIVE [facility] Comment on above: Performed By: #### D RUGRPD #### [facility] [address] [place] [address] Marina Molly SAI Negative Normal NEGATIVE [facility] Comment on above: Performed By: #### D RUGRPD #### [facility] [address] [place] [address] Marina Molly CUT-OFFS SEE BELOW Normal [facility] Comment on above: Result Comment: AMP (Amphetamine): 500ng/mL, BAR (Barbituates): 200 ng/mL, BZO (Benzodiazepines): 150 ng/mL, BUP (Buprenorphine): 10 ng/mL, SAI (Cocaine): 150 ng/mL, mAMP (Methamphetamine): 500 ng/mL, MTD (Methadone): 200 ng/mL, OPI (Opiates): 100 ng/mL, OXY (Oxycodone): 100 ng/mL, PCP (Phencyclidine): 25 ng/mL, PPX (Propoxyphene): 300 ng/mL, THC (Cannabinoids): 50 ng/mL, TCA (Trycyclic Antidepressants): 300 ng/mL Performed By: #### D RUGRPD #### [facility] [address] [place] [address] Marina Molly DRUG CUT HEADER DRUG CLASS TEST SYSTEM CUT-OFF CONCENTRATIONS ARE FOLLOWS: Normal [facility] Comment on above: Performed By: #### D RUGRPD #### [facility] [address] [address] Marina Molly mAMP Negative Normal NEGATIVE [facility] Comment on above: Performed By: #### D RUGRPD #### [facility] [address] [address] Marina Molly MTD Negative Normal NEGATIVE [facility] Comment on above: Performed By: #### D RUGRPD #### [facility] [address] [address] Marina Molly OPI Negative Normal NEGATIVE [facility] Comment on above: Performed By: #### D RUGRPD #### [facility] [address] [address] Marina Molly OXY Negative Normal NEGATIVE [facility] Comment on above: Performed By: #### D RUGRPD #### [facility] [address] [place] [address] Marina Molly PCP Negative Normal NEGATIVE [facility] Comment on above: Performed By: #### D RUGRPD #### [facility] [address] [address] Marina Molly PPX Negative Normal NEGATIVE [facility] Comment on above: Performed By: #### D RUGRPD #### [facility] [address] [address] Marina Molly TCA Negative Normal NEGATIVE [facility] Comment on above: Performed By: #### D RUGRPD #### [facility] [address] [address] Marina Molly THC Negative Normal NEGATIVE [facility] Comment on above: Performed By: #### D RUGRPD #### [facility] [address] [address] Marina Molly TYPE AND SCREENon 01-06-2021 TYPE AND SCREEN Negative Normal [facility] Comment on above: Performed By: #### D RUGRPD #### [facility] [address] [address] Marina Molly US PREG BIOPHY W NON STRESSo n 01-04-2021 US PREG BIOPHY W NON STRESS EXAMINATION: US PREG BIOPHY W NON STRESS HISTORY: Multigravida of advanced maternal age COMPARISON: No relevant comparison available. TECHNIQUE: Ultrasound biophysical profile was performed in the radiology department. non-reactive stress testing was performed by nursing staff in the birthing center. FINDINGS: BREATHING MOVEMENTS: 2.0 GROSS BODY MOVEMENTS: 2.0 TONE: 2.0 QUALITATIVE AMNIOTIC FLUID VOLUME: 2.0 PRESENTATION: cephalic HEART RATE: 150.0 bpm H.B./min AMNIOTIC FLUID VOLUME: 16.2 cm cm GESTATIONAL AGE: 38 weeks 5 days CONCLUSION: Total biophysical profile score: 8.0 Electronically authenticated by: MARCELINO WHITE Date: 2021-01-04 10:39 Normal [facility] US PREG BIOPHY W NON STRESSo n 12-22-2020 US PREG BIOPHY W NON STRESS EXAMINATION: US PREG BIOPHY W NON STRESS HISTORY: Multigravida of advanced maternal age COMPARISON: No relevant comparison available. TECHNIQUE: Ultrasound biophysical profile was performed in the radiology department. non-reactive stress testing was performed by nursing staff in the birthing center. FINDINGS: BREATHING MOVEMENTS: 2.0 GROSS BODY MOVEMENTS: 2.0 TONE: 2.0 QUALITATIVE AMNIOTIC FLUID VOLUME: 2.0 PRESENTATION: Cephalic HEART RATE: 153.4 bpm H.B./min AMNIOTIC FLUID VOLUME: 24.4 cm cm GESTATIONAL AGE: 36 weeks 6 days CONCLUSION: Total biophysical profile score: 8.0 Electronically authenticated by: MARCELINO WHITE Date: 2020-12-22 11:52 Normal [facility] US PREG GROWTHon 12-22-2020 US PREG GROWTH EXAMINATION: US PREG GROWTH HISTORY: High weight infant COMPARISON: No relevant comparison available. FINDINGS: Heart Rate: 153.4 bpm Amniotic Fluid Volume: 24.4 cm , 95th percentile 27.6 cm Number: 1.0 Position: Cephalic presentation, longitudinal lie Maximum Vertical Pocket: 9.4 cm cm 5.5 cm cm 4.5 cm cm 5.2 cm cm BIOMETRY: BPD: 9.5 cm cm; 39 weeks 0 days; 97% HC: 33.8 cmcm; 38 weeks 6 days, 71% AC: 35.7 cm cm; 39 weeks 4 days, greater than 97% FL: 7.0 cm cm; 36 weeks 0 days; 26.0 % % EFW: 3554.9 grams, 7 lbs. 13 oz., 93% FL/AC: 19.7 FL/BPD: 73.6 HC/AC: 0.9 GESTATIONAL AGE: Age by EDC: 36 weeks 6 days ANNABELLA by EDC: 01/13/2021 Age by US: 38 weeks 3 days ANNABELLA by US: 01/02/2021 IMPRESSION: Large for gestational age. BPD is 97th percentile, abdominal circumference greater than the 97th percentile and estimated weight at the 93rd percentile Prominent amniotic fluid, however less than the 95th percentile Electronically authenticated by: MARCELINO WHITE Date: 2020-12-22 11:51 Normal [facility] GLYCOHEMOGLOBIN A1Con 2020 ADA RECOMMENDATION ADA THERAPEUTIC TARGET 6.0 - 7.0 ACTION SUGGESTED > 7.0 Normal [facility] Comment on above: Performed By: #### A 1C #### [facility] [address] [place] [address] Marina Molly Glucose [Mass/Vol] 108 mg/dL Normal [facility] Comment on above: Performed By: #### A 1C #### [facility] [address] [place] [address] Marina Molly HbA1c (Bld) [Mass fraction] 5.4 % Normal <=6.0 [facility] Comment on above: Performed By: #### A 1C #### [facility] [address] [place] [address] Radar da Produçãoen GROUP B STREP CULTUREon 12-01 S. agalactiae Ag Ql (Unsp spec) Culture Observations: Negative for Group B Streptococcus Normal [facility] Comment on above: Performed By: #### D RUGRPD #### [facility] [address] [place] [address] Marina Molly GLUCOSE - 1HRon 10-05-2020 Glucose [Mass/Vol] 178 mg/dL Critically high 74-106 [facility] Comment on above: Performed By: #### D RUGRPD #### [facility] [address] [place] [address] Marina Molly HEMOGRAM AND PLATELon 2020 Hematocrit (Bld) [Volume fraction] 31.9 % Critically low 36.0-48.0 [facility] Comment on above: Performed By: #### C BC #### [facility] [address] [place], [place] [id number] Marina Barnes Hemoglobin (Bld) [Mass/Vol] 10.6 g/dL Critically low 12.0-16.0 [facility] Comment on above: Performed By: #### C BC #### [facility] [address] [place], [place] [phone] Marina Barnes MCH (RBC) [Entitic mass] 28.3 pg Normal 26.7-34.0 [facility] Comment on above: Performed By: #### C BC #### [facility] [address] [place] [address] Marina Barnes MCHC (RBC) [Mass/Vol] 33.2 g/dL Normal 29.9-35.2 [facility] Comment on above: Performed By: #### C BC #### [facility] [address] [place] [address] Marina Barnes MCV (RBC) [Entitic vol] 85.3 fL Normal 81.0-99.0 [facility] Comment on above: Performed By: #### C BC #### [facility] [address] [place], [place] [id number] Marina Estradaen PLT 123 103/ul Critically low 150-450 [facility] Comment on above: Performed By: #### C BC #### [facility] [address] [place], [place] [id number] Marina Molly RBC 3.74 106/ul Critically low 4.20-5.40 [facility] Comment on above: Performed By: #### C BC #### [facility] [address] [place], [place] [id number] Marina Molly WBC 6.6 103/ul Normal 4.0-11.0 [facility] Comment on above: Performed By: #### C BC #### [facility] [address] [place], [place] [phone] Marina Molly US PREG ANATOMY SINGLEon US PREG ANATOMY SINGLE EXAMINATION: US PREG ANATOMY SINGLE HISTORY: screening COMPARISON: No relevant comparison available. TECHNIQUE: Transabdominal sonographic examination was performed for obstetrical and evaluation. FINDINGS: Number: 1 Heart Rate: 154.3 bpm H.B. /min Amniotic Fluid Volume: Subjectively normal Placental Location: Anterior without previa Cervix Length: 5 cm , closed ANATOMY: Normal Structures -cerebellum, choroid plexus, cisterna magna, lateral cerebral ventricles, orbits, midline falx, hard palate, four-chamber heart, RVOT, LVOT, stomach, kidneys, bladder, umbilical cord insertion into abdomen, three-vessel cord, cervical spine, thoracic spine, lumbar spine, sacral spine, right upper extremity, left upper extremity, right lower extremity, left lower extremity. SUBOPTIMALLY SEEN: None ABNORMALITIES: None BIOMETRY: BPD: 6.7 cm 26 weeks 6 days HC: 24.9 cm 27 weeks 0 days AC: 22.3 cm 26 weeks 5 days FL: 4.6 cm 25 weeks 1 days EFW:910.3 grams; 62nd percentile FL/AC: 20.5 FL/BPD: 68.8 HC/AC: 1.1 GESTATIONAL AGE: Age by EDC: 25 weeks 5 days ANNABELLA by EDC: 01/13/2021 Age by current US: 26 weeks 3 days ANNABELLA by current US: 01/08/2021 IMPRESSION: 1. Single live intrauterine with growth detailed above. Electronically authenticated by: DANGELO LIAO Date: 2020-10-05 12:57 Normal [facility] HEP B SURFACE ANTIGEN SCREEN on 09-16-2020 HBsAg Screen Negative Normal Negative [facility] Comment on above: Performed By: #### C BC #### [facility] [address] [address] Marina Barnes HEPATITIS C VIRUS AB W/ REFL EX QUANTon 09-16-2020 HCV AB <0.1 Normal 0.0-0.9 [facility] Comment on above: Performed By: #### D RUGRPD #### [facility] [address] [place] [address] Marina Barnes Interpretation: Comment Normal [facility] Comment on above: Result Comment: Nega tive Not infected with HCV, unless recent infection is suspected or other evidence exists to indicate HCV infection. Performed By: #### D RUGRPD #### [facility] [address] [place] [address] Marina Barnes HIV 1 AND 2 WITH REFLEXon HIV Screen 4th Generation wRfx Non-Reactive Normal Non Reactive [facility] Comment on above: Performed By: #### C BC #### [facility] [address] [place] [address] Marina Barnes RPR QUANTon 09-16-2020 Rapid Plasma Reagin, Quant Non-Reactive Normal NonRea<1:1 [facility] Comment on above: Performed By: #### R PRQ #### [facility] [address] [place] [address] Marina Barnes RUBELLA AB IGGon 09-16-2020 Rubella Antibodies, IgG 1.47 index Normal Immune >0.99 [facility] Comment on above: Result Comment: Non- immune <0.90 Equivocal 0.90 - 0.99 Immune >0.99 Performed By: #### C BC #### [facility] [address] [place] [address] Marina Barnes TYPE AND SCREENon 09-15-2020 TYPE AND SCREEN Negative Normal [facility] Comment on above: Performed By: #### T NS #### [facility] [address] [place] [address] Marina Barnes CBC AUTO DIFFon 09-14-2020 BASO # 0.0 103/ul Normal 0.0-0.1 [facility] Comment on above: Performed By: #### C BC #### [facility] [address] [place] [address] Marina Barnes Basophils/100 WBC (Bld) 0.1 % Critically low 0.2-2.0 [facility] Comment on above: Performed By: #### C BC #### [facility] [address] [place] [address] Marina Molly EO # 0.1 103/ul Normal 0.0-0.7 [facility] Comment on above: Performed By: #### C BC #### [facility] [address] [place] [address] Marina Molly Eosinophils/100 WBC (Bld) 1.3 % Normal 0.9-7.0 [facility] Comment on above: Performed By: #### C BC #### [facility] [address] [place] [address] Marina Molly Erythrocyte distribution width (RBC) [Ratio] 12.6 % Normal 11.0-15.0 [facility] Comment on above: Performed By: #### C BC #### [facility] [address] [place] [address] Marina Molly Hematocrit (Bld) [Volume fraction] 34.0 % Critically low 36.0-48.0 [facility] Comment on above: Performed By: #### C BC #### [facility] [address] [place] [address] Marina Molly Hemoglobin (Bld) [Mass/Vol] 11.3 g/dL Critically low 12.0-16.0 [facility] Comment on above: Performed By: #### C BC #### [facility] [address] [place] [address] Marina Molly IG # 0.02 10e3/ul Normal 0.00-0.03 [facility] Comment on above: Performed By: #### C BC #### [facility] [address] [place] [address] Marina Molly IG % 0.3 % Normal 0.0-0.5 [facility] Comment on above: Performed By: #### C BC #### [facility] [address] [place] [address] Marina Molly LYMPH # 1.3 103/ul Normal 1.2-3.8 [facility] Comment on above: Performed By: #### C BC #### [facility] [address] [place], [place] [id number] Marina Molly Lymphocytes/100 WBC (Bld) 17.4 % Critically low 20.5-60.0 [facility] Comment on above: Performed By: #### C BC #### [facility] [address] [place] [address] Marina Molly MANUAL DIFF REQ NO Normal [facility] Comment on above: Performed By: #### C BC #### [facility] [address] [place], [place] [id number] Marina Barnes MCH (RBC) [Entitic mass] 28.8 pg Normal 26.7-34.0 [facility] Comment on above: Performed By: #### C BC #### [facility] [address] [place] [address] Marina Barnes MCHC (RBC) [Mass/Vol] 33.2 g/dL Normal 29.9-35.2 [facility] Comment on above: Performed By: #### C BC #### [facility] [address] [place] [address] Marina Barnes MCV (RBC) [Entitic vol] 86.5 fL Normal 81.0-99.0 [facility] Comment on above: Performed By: #### C BC #### [facility] [address] [place] [address] Marina Barnes MONO # 0.5 103/ul Normal 0.3-0.8 [facility] Comment on above: Performed By: #### C BC #### [facility] [address] [place] [address] Marina Barnes Monocytes/100 WBC (Bld) 6.1 % Normal 1.7-12.0 [facility] Comment on above: Performed By: #### C BC #### [facility] [address] [place] [address] Marina Barnes NEUT # 5.7 103/ul Normal 1.4-6.5 [facility] Comment on above: Performed By: #### C BC #### [facility] [address] [place], [place] [phone] Marina Barnes Neutrophils/100 WBC (Bld) 74.8 % Normal 43.0-75.0 [facility] Comment on above: Performed By: #### C BC #### [facility] [address] [place] [address] Marina Barnes Platelet mean volume (Bld) [Entitic vol] 9.4 fL Critically low 9.5-13.5 [facility] Comment on above: Performed By: #### C BC #### [facility] [address] [place], [place] [address] Marina Molly PLT 148 103/ul Critically low 150-450 [facility] Comment on above: Performed By: #### C BC #### [facility] [address] [place], [place] [address] Marina Molly RBC 3.93 106/ul Critically low 4.20-5.40 [facility] Comment on above: Performed By: #### C BC #### [facility] [address] [place] [id number] Marina Molly WBC 7.7 103/ul Normal 4.0-11.0 [facility] Comment on above: Performed By: #### C BC #### [facility] [address] [place], [place] [phone] Marina Barnes CULTURE URINEon 09-14-2020 CULTURE URINE Culture Observations : Moderate growth of mixed genital mario.No potential pathogens seen. Normal [facility] Comment on above: Performed By: #### U RCX #### [facility] [address] [place] [id number] Marinadionisio Barnes GLYCOHEMOGLOBIN A1Con 2020 Glucose [Mass/Vol] 103 mg/dL Normal [facility] Comment on above: Performed By: #### A 1C #### [facility] [address] [place], [place] [phone] Marina Molly HbA1c (Bld) [Mass fraction] 5.2 % Normal <=6.0 [facility] Comment on above: Performed By: #### A 1C #### [facility] [address] [place] [id number] Marina Molly UA RANDOM W/MICROSCOPICon BACTERIA TRACE Abnormal NONE SEEN [facility] Comment on above: Performed By: #### D RUGRPD #### [facility] [address] [place] [phone] Marina Omlly Bilirubin Ql (U) Negative Normal NEGATIVE [facility] Comment on above: Performed By: #### D RUGRPD #### [facility] [address] [place] [address] Marina Molly CAST NONE SEEN Normal NONE SEEN [facility] Comment on above: Performed By: #### D RUGRPD #### [facility] [address] [place] [address] Marina Molly Clarity (U) SL CLOUDY Abnormal CLEAR [facility] Comment on above: Performed By: #### D RUGRPD #### [facility] [address] [place] [address] Marina Molly Color (U) LT. YELLOW Normal YELLOW [facility] Comment on above: Performed By: #### D RUGRPD #### [facility] [address] [place] [address] Marina Molly Crystals LM Nom (Urine sed) NONE SEEN Normal NONE SEEN [facility] Comment on above: Performed By: #### D RUGRPD #### [facility] [address] [place] [address] Marina Molly Epithelial cells LM Ql (Urine sed) FEW Abnormal NONE SEEN /RARE [facility] Comment on above: Performed By: #### D RUGRPD #### [facility] [address] [place] [address] Marina Molly Glucose Ql (U) 100 mg/dl Abnormal NEGATIVE [facility] Comment on above: Performed By: #### D RUGRPD #### [facility] [address] [place] [address] Marina Molly Hemoglobin Ql (U) Negative Normal NEGATIVE [facility] Comment on above: Performed By: #### D RUGRPD #### [facility] [address] [place] [address] Marina Molly Ketones Ql (U) Negative Normal NEGATIVE [facility] Comment on above: Performed By: #### D RUGRPD #### [facility] [address] [place] [address] Marina Molly LEUKOCYTES Negative Normal NEGATIVE [facility] Comment on above: Performed By: #### D RUGRPD #### [facility] [address] [place], [place] [address] Marina Molly MUCOUS TRACE Abnormal NONE SEEN [facility] Comment on above: Performed By: #### D RUGRPD #### [facility] [address] [place] [phone] Marina Molly Nitrite Ql (U) Negative Normal NEGATIVE [facility] Comment on above: Performed By: #### D RUGRPD #### [facility] [address] [place] [phone] Marina Molly pH (U) 6.0 [pH] Normal 5-9 [facility] Comment on above: Performed By: #### D RUGRPD #### [facility] [address] [place], [place] [phone] Marina Molly RBC 0-2 Normal 0-2 [facility] Comment on above: Performed By: #### D RUGRPD #### [facility] [address] [place], [place] [phone] Marina Barnes SPEC GRAVITY 1.025 Normal 1.005-<=1.025 [facility] Comment on above: Performed By: #### D RUGRPD #### [facility] [address] [place], [place] [phone] Marina Molly UA PROTEIN Negative Normal NEGATIVE/ TRACE [facility] Comment on above: Performed By: #### D RUGRPD #### [facility] [address] [place], [place] [phone] Marina Barnes Urobilinogen Qn (U) 0.2 {Kari'U}/dL Normal 0.2 - 1. 0 [facility] Comment on above: Performed By: #### D RUGRPD #### [facility] [address] [place], [place] [phone] Marina Molly WBC 0-2 Abnormal NONE SEEN [facility] Comment on above: Performed By: #### D RUGRPD #### [facility] [address] [place], [place] [phone] Marina Barnes Vital Signs Date Time Vital Sign Value Performing Clinician Facility 05-17-2025 10:15-0400 Body mass index (BMI) [Ratio] 21.89 kg/m2 Lacie OCHOA Work Phone: [facility] 05-17-2025 10:15-0400 Body weight 57.83 kg Lacie OCHOA Work Phone: [facility] 05-17-2025 10:15-0400 Diastolic blood pressure 82 mm[Hg] Lacie OCHOA Work Phone: [facility] 05-17-2025 10:15-0400 Systolic blood pressure 110 mm[Hg] Lacie OCHOA Work Phone: [facility] 05-19-2024 11:14-0400 Body height 162.6 cm Fatuma Martinez MD Work Phone: [facility] 05-19-2024 11:14-0400 Body mass index (BMI) [Ratio] 25.85 kg/m2 Fatuma Martinez MD Work Phone: [facility] 05-19-2024 11:14-0400 Body temperature 98.4 [degF] Fatuma Martinez MD Work Phone: [facility] 05-19-2024 11:14-0400 Body weight 68.31 kg Fatuma Martinez MD Work Phone: [facility] 05-19-2024 11:14-0400 Diastolic blood pressure 68 mm[Hg] Fatuma Martinez MD Work Phone: [facility] 05-19-2024 11:14-0400 Heart rate 75 /min Fatuma Martinez MD Work Phone: [facility] 05-19-2024 11:14-0400 SaO2% (BldA) [Mass fraction] 97 % Fatuma Martinez MD Work Phone: [facility] 05-19-2024 11:14-0400 Systolic blood pressure 118 mm[Hg] Fatuma Martinez MD Work Phone: [facility] 05-11-2024 10:08-0400 Body height 162.6 cm Lacie OCHOA Work Phone: [facility] 05-11-2024 10:08-0400 Body mass index (BMI) [Ratio] 26.23 kg/m2 Lacie OCHOA Work Phone: [facility] 05-11-2024 10:08-0400 Body weight 69.31 kg Lacie OCHOA Work Phone: [facility] 05-11-2024 10:08-0400 Diastolic blood pressure 70 mm[Hg] Lacie OCHOA Work Phone: [facility] 05-11-2024 10:08-0400 Systolic blood pressure 120 mm[Hg] Lacie OCHOA Work Phone: [facility] Encounters Encounter Date Encounter Type Care Provider Facility Start: 05-17-2025 End: 05-17-2025 Bamboo flowsheet Lacie OCHOA Work Phone: [facility] Start: 05-17-2025 End: 05-17-2025 Bamboo flowsheet Lacie OCHOA Work Phone: [facility] Start: 05-17-2025 End: 05-17-2025 Patient encounter procedure Lacie OCHOA Work Phone: [facility] Start: 05-17-2025 End: 05-17-2025 Periodic preventive med est patient 40-64yrs Lacie OCHOA Work Phone: [facility] Comment on above: Well woman exam with routine gynecological exam; Encounter for screening mammogram for malignant neoplasm of breast Start: 05-19-2024 End: 05-19-2024 Initial preventive medicine new patient 40-64yrs Fatuma Martinez MD Work Phone: [facility] Comment on above: Annual physical exam (Primary Dx); Sebaceous cyst Start: 05-19-2024 End: 05-19-2024 Patient encounter procedure Fatuma Martinez MD Work Phone: [facility] [employer] Work Phone: Start: 05-19-2024 End: 05-19-2024 ambulatory [facility] Start: 05-19-2024 Encounter for genera l adult medical examination without abnormal findings [facility] Start: 05-11-2024 End: 05-11-2024 Bamboo flowsheet Lacie OCHOA Work Phone: [facility] Start: 05-11-2024 End: 05-15-2024 Clinisync Result Encounter Lacie OCHOA Work Phone: [facility] Unsolicited Start: 05-11-2024 End: 05-15-2024 Clinisync Result Encounter Lacie OCHOA Work Phone: [facility]solic[facility] Start: 05-11-2024 End: 05-12-2024 External Result Encounter Lacie OCHOA Work Phone: [facility]olic[facility] Start: 05-11-2024 End: 05-11-2024 Patient encounter procedure Lacie OCHOA Work Phone: [facility] Work Phone: Start: 05-11-2024 End: 05-11-2024 Periodic preventive med est patient 40-64yrs Lacie OCHOA Work Phone: [facility] Comment on above: Well woman exam with routine gynecological exam; Breast cancer screening by mammogram; Exposure to STD Start: 05-11-2024 End: 05-11-2024 ambulatory LACIE MAHONEY Not Available Start: 07-20-2021 End: 07-20-[address] ANA MARIA KRAMER Facility:[facility] Start: 02-11-2021 Encounter for preprocedural laboratory examination DR ANA MARIA KRAMER [facility] Start: 02-10-2021 End: 02-10-[address] ANA MARIA KRAMER Facility:[facility] Start: 02-07-[address] ANA MARIA KRAMER Facility :[facility] Start: 02-06-2021 End: 02-07-[address] ANA MARIA KRAMER Facility:[facility] Start: 02-06-2021 End: 02-07-2021 Encounter for preprocedural laboratory examination DR ANA MARIA KRAMER Facility:[facility] Start: 01-11-[address] ANA MARIA KRAMER Facility :[facility] Start: 01-10-2021 End: 01-10-[address] ANA MARIA KRAMER Facility:[facility] Start: 01-06-2021 End: 01-08-2021 Evaluation and management of inpatient DR ANA MARIA KRAMER Facility:[facility] Start: 01-04-2021 End: 01-04-2021 ambulatory RAKAN AREVALO Facility:[facility] Start: 12-22-2020 End: 12-22-[address] ANA MORALES Facility:[facility] Start: 12-14-2020 End: 12-14-[address] ANA MORALES Facility:[facility] Start: 12-14-2020 End: 12-15-[address] ANA MORALES Facility:[facility] Start: 12-02-2020 End: 12-03-[address] ANA MARIA KRAMER Facility:[facility] Start: 10-13-[address] ANA MARIA KRAMER Facility :[facility] Start: 10-05-2020 End: 10-06-[address] ANA MARIA KRAMER Facility:[facility] Start: 09-14-2020 End: 09-15-[address] ANA MORALES Facility:[facility] Procedures Date Procedure Procedure Detail Performing Clinician Start: 05-19-2024 Adult depression scr eening assessment Fatuma Martinez MD Work Phone: Start: 05-11-2024 IGP,APTIMA HPV,AGE GDLN Lacie OCHOA Work Phone: Start: 05-11-2024 URETHRITIS/DISCHARGE PLUS VAGINITIS (HTRX) Lacie OCHOA Work Phone: Start: 01-06-2021 Delivery of Products of Conception, External Approach DR ANA MARIA KRAMER Start: 01-06-2021 Drainage of Amniotic Fluid, Therapeutic from Products of Conception, Via Natural or Artificial Opening DR ANA MARIA KRAMER Start: 01-06-2021 Introduction of Othe r Hormone into Peripheral Vein, Percutaneous Approach DR ANA MARIA KRAMER Start: 01-06-2021 Repair Perineum Skin , External Approach DR ANA MARIA KRAMER Plan of Treatment Date Care Activity Detail Author Start: 05-29-2027 DTaP,Tdap and Td Vaccines (2 - Td or Tdap) DTaP,Tdap and Td Vaccines (2 - Td or Tdap) [employer] Start: 05-23-2026 End: 05-23-2026 Patient encounter procedure 05/23/2026 10:00 AM EDT Procedure [facility] [address] [place] [id number] Lacie Mahoney PA [address] [place] [address] [facility] [place] [facility] Start: 05-17-2025 End: 07-17-2026 MG Breast - bilateral Diagnostic Bilateral diagnostic mammogram Imaging Routine Well woman exam with routine gynecological exam Encounter for screening mammogram for malignant neoplasm of breast Expected: 05/17/2025 (Approximate), Expires: 07/17/2026 [facility] Comment on above: Expected: 05/17/2025 (Approximate), Expires: 07/17/2026 Start: 05-17-2025 End: 05-17-2025 Patient encounter procedure [facility] Comment on above: Arrived Start: 05-19-2024 End: 05-19-2025 CBC W Auto Differential panel - Blood CBC auto differential Lab Routine Annual physical exam Expected: 05/19/2024 (Approximate), Expires: 05/19/2025 [employer] Work Phone: Comment on above: Expected: 05/19/2024 (Approximate), Expires: 05/19/2025 Start: 05-19-2024 End: 05-19-2025 Comprehensive metabolic 2000 panel - Serum or Plasma Comprehensive metabolic panel Lab Routine Annual physical exam Expected: 05/19/2024 (Approximate), Expires: 05/19/2025 [employer] Comment on above: Expected: 05/19/2024 (Approximate), Expires: 05/19/2025 Start: 05-19-2024 End: 05-19-2025 Lipid 1996 panel - Serum or Plasma Lipid profile Lab Routine Annual physical exam Expected: 05/19/2024 (Approximate), Expires: 05/19/2025 [employer] Comment on above: Expected: 05/19/2024 (Approximate), Expires: 05/19/2025 Start: 05-19-2024 End: 05-19-2025 TSH with Reflex TSH with Reflex Lab Routine Annual physical exam Expected: 05/19/2024 (Approximate), Expires: 05/19/2025 [facility] Comment on above: Expected: 05/19/2024 (Approximate), Expires: 05/19/2025 Start: 05-19-2024 End: 05-19-2025 Vitamin D 25 hydroxy Vitamin D 25 hydroxy Lab Routine Annual physical exam Expected: 05/19/2024 (Approximate), Expires: 05/19/2025 [facility] Comment on above: Expected: 05/19/2024 (Approximate), Expires: 05/19/2025 Start: 05-11-2024 End: 07-11-2025 MG Breast - bilateral Screening Bilateral screening mammogram Imaging Routine Breast cancer screening by mammogram Expected: 05/11/2024 (Approximate), Expires: 07/11/2025 [facility] Work Phone: Comment on above: Expected: 05/11/2024 (Approximate), Expires: 07/11/2025 Start: 05-11-2024 End: 05-11-2024 Patient encounter procedure 05/11/2024 10:00 AM EDT Office Visit [facility] [address] [place] [place] [id number] Lacie Mahoney PA [address] [place] [address] Arrived [facility] Comment on above: Arrived Start: 05-03-2024 Influenza vaccination Influenza Vacc ine [facility] Start: 2003 Screening for malign ant neoplasm of cervix Pap Smear [facility] Start: 2000 Adult BMI Follow Up Plan Adult BMI Follow Up Plan [facility] Start: 2000 Adult BMI Screening Adult BMI Screen ing [facility] Start: 1994 Depression Screening Depression Scre ening [facility] Start: 1994 Tobacco Screening Tobacco Screening [facility] CHLAMYDIA TRACHOMATI S (GENITO/STI) CHLAMYDIA TRACHOMATIS (GENITO/STI) Lab Routine Exposure to STD Ordered: 05/11/2024 [facility] Comment on above: Ordered: 05/11/2024 Neisseria gonorrhoea e DNA [Presence] in Unspecified specimen by DANIELLE with probe detection Neisseria gonorrhea DNA probe, direct Lab Routine Exposure to STD Ordered: 05/11/2024 [facility] Comment on above: Ordered: 05/11/2024 SURESWAB(R) ADVANCED VAGINITIS PLUS, TMA SURESWAB(R) ADVANCED VAGINITIS PLUS, TMA Pathology and Cytology Routine Exposure to STD Ordered: 05/11/2024 [facility] Comment on above: Ordered: 05/11/2024 THIN PREP TIS PAP AN D HR HPV DNA THIN PREP TIS PAP AND HR HPV DNA Pathology and Cytology Routine Well woman exam with routine gynecological exam Ordered: 05/11/2024 [facility] Comment on above: Ordered: 05/11/2024 THIN PREP TIS PAP AN D HR HPV DNA THIN PREP TIS PAP AND HR HPV DNA Pathology and Cytology Routine Well woman exam with routine gynecological exam Ordered: 05/17/2025 [facility] Work Phone: Comment on above: Ordered: 05/17/2025 Payers Date Payer Category Payer [facility] er [id number] 2022 Unknown [id number] 2021 Medicaid [employer] [place] [employer] [id number] 2021-Present [address] [place] [address] [id number] 2021 Medicaid (Managed Care) [facility] MEDICAID [id number] 2010 Unknown [id number]. [id number] 1982 Unknown [id number] 2.16.840.1.228183.3.579.2. 593 1982 Unknown [id number] 2.16.840.1.680855.3.579.2. 593 1982 Unknown [id number] 2.16.840.1.028400.3.579.2. 593 1982 Unknown [id number] 2.16.840.1.761102.3.579.2. 593 1982 Unknown [id number] 2.16.840.1.616950.3.579.2. 593 1982 Unknown [id number] 2.16.840.1.744657.3.579.2. 593 1982 Unknown [id number] 2.16.840.1.235178.3.579.2. 593 1982 Unknown [id number] 2.16.840.1.168610.3.579.2. 593 1982 Unknown [id number] 2.16.840.1.653277.3.579.2. 593 1982 Unknown [id number] 2.16.840.1.765033.3.579.2. 593 1982 Unknown [id number] 2.16.840.1.541291.3.579.2. 593 1982 Unknown [id number] 2.16.840.1.692473.3.579.2. 593 1982 Unknown [id number] 2.16.840.1.248348.3.579.2. 593 1982 Unknown [id number] 2.16.840.1.554487.3.579.2. 593 1982 Unknown [id number] 2.16.840.1.214001.3.579.2. 593 1982 Unknown [id number] 2.16.840.1.050309.3.579.2. 593 1982 Unknown [id number] 2.16.840.1.074942.3.579.2. 1259 1982 Unknown [id number] 2.16.840.1.176328.3.579.2. 1286 1959 Self-pay [id number] 1959 Unknown [id number] 1959 Unknown [id number] Social History Date Type Detail Facility Tobacco smoking stat [facility] Tobacco smoking consumption unknown [facility] Start: 1980 Sex assigned at Female [facility] Start: 05-09-2024 Gender identity Identifies as female gender (finding) [facility] Start: 05-09-2024 Sexual orientation Heterosexual (finding) [facility] Start: 05-19-2024 Tobacco smoking status TXIS Ex-smoker [facility] History of tobacco use [facility] History of tobacco use Cigarette Smoker P [facility] Start: 05-19-2024 Tobacco use and exposure Smokeless tobacco non-user [facility] Start: 05-19-2024 Alcoholic beverage intake Current drinker of alcohol (finding) [facility] Start: 10-13-2020 End: 05-19-2024 History of Social function [facility] Start: 10-13-2020 End: 05-19-2024 Tobacco use panel [facility] Adolescent depressio n screening assessment 0 [facility] Start: 05-19-2024 Alcohol Comment 1 every couple weeks [facility] Start: 1980 Sex assigned at Not on file [facility] History of Present illness Narrative 05-17-2025 DON Maya - 05/17/2025 10:00 AM EDT Note Date & Type Note Facility 05-17-2025 History of Presen t illness Narrative Images from the original note were not included. Reason for Appointment: Patient ID: Atiya Dickson is a 44 y.o. female who presents [...] nursing note reviewed. Exam conducted with a tube heater present. Vitals: Estimated body mass index is 21.89 kg/m as calculated from the following: Height as [...] of: DON Maya documented in this encounter [facility] History of Present illness Narrative 05-19-2024 Fatuma Martinez MD - 05/19/2024 11:00 AM EDT Note Date & Type Note Facility 05-19-2024 History of Presen t illness Narrative Images from the original note were not included. [address] [place] [id number] Patient: Atiya Dickson Date of : 1980 Encounter Date: 05/19/2024 SUBJECTIVE: HISTORY OF PRESENT ILLNESS: Chief Complaint: Chief Complaint Patient presents with Establish Care Hair/Scalp Problem Patient ID: Atiya is a 43 y.o. female Pleasant 43 year female comes in today to establish care with new primary care provider Past medical history of sebaceous cyst present on her scalp, ADHD for which she was on Adderall, following Psychiatry, frequent cannabis user. Former smoker of 1ppd for more than 10 years. No significant surgical history other than mentioned below. 4 kids 2 kids in 36 and 38, all to term, healthy, no HTN disorders or GDM, all Does have a history of multiple cysts, lumps and bumps present on her scalp, groin space and now on her ankle. The ones in her scalp are most chronic, she has had [address] Verma. Has a another 1 recurring now particularly on the right temporal region of her scalp, sore and painful with combing hair. No oozing or drainage. No erythema or pain or fevers secondary to that location. Also has 2 smaller suspect a sebaceous cyst on the scalp, these are largely non bothersome at present. Also has a other skin lesion that is present in the lateral aspect of her ankle. Occasionally becomes itchy and bothersome generally not a problem. PAST MEDICAL HISTORY: History reviewed. No pertinent past medical history. PAST SURGICAL HISTORY: Past Surgical History: Procedure Laterality Date MOUTH SURGERY TUBAL LIGATION 12/2020 FAMILY HISTORY: Family History Problem Relation Age of Onset Hypertension Father Heart attack Father Alzheimer's disease Maternal Grandmother Breast cancer Maternal Grandmother Diabetes Maternal Grandfather Heart disease Maternal Grandfather Cancer Paternal Grandmother BREAST Heart disease Paternal Grandfather SOCIAL HISTORY: Social History Socioeconomic History Marital status: Single Spouse name: Not on file Number of children: Not on file Years of education: Not on file Highest education level: Not on file Occupational History Not on file Tobacco Use Smoking status: Former Types: Cigarettes Smokeless tobacco: Never Vaping Use Vaping status: Some Days Substances: Nicotine, THC Substance and Sexual Activity Alcohol use: Yes Comment: 1 every couple weeks Drug use: Yes Frequency: 2.0 times per week Types: Marijuana Sexual activity: Yes Partners: Male control/protection: Surgical Other Topics Concern Not on file Social History Narrative Not on file Social Determinants of Health Financial Resource Strain: Not on file Food Insecurity: No Food Insecurity (05/19/2024) Hunger Screening Food Insecurity - Worry: Never True Food Insecurity - Inability: Never True Transportation Needs: Not on file Physical Activity: Not on file Stress: Not on file Social Connections: Not on file Interpersonal Safety: Not on file Housing Instability: Not on file ALLERGY: No Known Allergies MEDICATIONS Current Outpatient Medications Medication Sig Dispense Refill amphetamine-dextroamphetamine XR (ADDERALL XR) 15 mg 24 hr capsule Take 1 capsule (15 mg total) by mouth. ferrous sulfate (IRON ORAL) Take by mouth. PNV no.95/ferrous fum/folic ac ( ORAL) Take by mouth. (Patient not taking: Reported on 05/19/2024) No current facility-administered medications for this visit. PHYSICAL EXAMINATION: Vitals: 05/19/24 1114 BP: 118/68 Pulse: 75 Temp: 36.9 C (98.4 F) SpO2: 97% Weight: 68.3 kg (150 lb 9.6 oz) Height: 162.6 cm (5' 4 ) Physical Exam Vitals reviewed. Constitutional: General: She is not in acute distress. Appearance: Normal appearance. Eyes: Extraocular Movements: Extraocular movements intact. Pupils: Pupils are equal, round, and reactive to light. Cardiovascular: Rate and Rhythm: Normal rate and regular rhythm. Pulses: Normal pulses. Heart sounds: Normal heart sounds. Pulmonary: Effort: Pulmonary effort is normal. No respiratory distress. Breath sounds: Normal breath sounds. No wheezing or rhonchi. Abdominal: General: Bowel sounds are normal. There is no distension. Palpations: Abdomen is soft. There is no mass. Tenderness: There is no abdominal tenderness. There is no right CVA tenderness, left CVA tenderness or guarding. Musculoskeletal: Cervical back: Normal range of motion and neck supple. Skin: Comments: 1-2 cm subcutaneous well-defined soft tissue cystic lesion present on the right upper temporal region of scalp. Two smaller subcentimeter lesions are also appreciated with similar findings. Has 0.5 cm skin colored raised lesion, hard, no surrounding erythema or skin changes, no opening, no dry excoriated skin. Neurological: Mental Status: She is alert and oriented to person, place, and time. Mental status is at baseline. Labs, imaging, and records: I have personally obtained and reviewed the relevant labs/imaging. ASSESSMENT/PLAN: Atiya was seen today for establish care and hair/scalp problem. Diagnoses and all orders for this visit: Annual physical exam - CBC auto differential; Future - Comprehensive metabolic panel; Future - Lipid profile; Future - TSH with Reflex; Future - Vitamin D 25 hydroxy; Future Sebaceous cyst - Ambulatory referral to Dermatology (Non[facility]); Future Pleasant 43-year-old female here to establish care with new primary care provider Does have history of sebaceous cyst that was removed on scalp, now having recurrence of multiple other locations. Also appears to have ??dermoid cyst on the ankle History of possible hidradenitis suppurativa. Due for metabolic labs as above Already has order for mammogram and pelvic exam/Pap smear by OB Gyne provider. Follow-up as needed. FATUMA MARTINEZ MD Family Medicine Physician [facility] / [facility] 05/19/24 This note was completed with voice recognition software. The document was reviewed for errors however some may still be present. Please do not hesitate to contact/Epic ms the author to verify any questions/concerns. documented in this encounter [facility] History of Present illness Narrative 05-11-2024 DON Maya - 05/11/2024 10:00 AM EDT Note Date & Type Note Facility 05-11-2024 History of Presen t illness Narrative Reason for Appointment: Patient ID: Atiya Dickson is a 43 y.o. female who presents for [facility] Women Visit Patient presents today for Annual Exam. MEDICATIONS Current Outpatient Medications Medication Instructions amphetamine-dextroamphetamine XR (Adderall XR) 15 MG 24 hr capsule 15 mg, Oral, Every morning ALLERGIES No Known Allergies PROBLEMS Active Ambulatory [...] Objective: Physical Exam Constitutional: Appearance: Normal appearance. She is well-developed. Genitourinary: Vulva normal. Right Adnexa: not tender and no mass present. Left Adnexa: not tender and no mass present. No cervical discharge. Breasts: Breasts are soft. Right: Normal. Left: Normal. HENT: Head: Normocephalic. Nose: Nose normal. Mouth/Throat: Mouth: Mucous membranes are moist. Cardiovascular: Rate and Rhythm: Normal rate and regular rhythm. Pulmonary: Effort: Pulmonary effort is normal. Breath sounds: Normal breath sounds. Abdominal: General: Bowel sounds are normal. There is no distension. Palpations: Abdomen is soft. Tenderness: There is no abdominal tenderness. There is no guarding or rebound. Musculoskeletal: General: No swelling. Normal range of motion. Cervical back: Normal range of motion. Right lower leg: No edema. Left lower leg: No edema. Neurological: General: No focal deficit present. Mental Status: She is alert and oriented to person, place, and time. Skin: General: Skin is warm and dry. Psychiatric: Mood and Affect: Mood normal. Behavior: Behavior normal. Vitals and nursing note reviewed. Exam conducted with a tube heater present. Vitals: Estimated body mass index is 26.23 kg/m as calculated from the following: Height as of this encounter: 5' 4 . Weight as of this encounter: 152 lb 12.8 oz. BP: 120/70 Patient's last menstrual period was 04/21/2024 (within weeks). ASSESSMENT & PLAN ICD-10-CM 1. Well woman exam with routine gynecological exam Z01.419 THIN PREP TIS PAP AND HR HPV DNA 2. Breast cancer screening by mammogram Z12.31 Bilateral screening mammogram Bilateral screening mammogram 3. Exposure to STD Z20.2 SURESWAB(R) ADVANCED VAGINITIS PLUS, TMA CHLAMYDIA TRACHOMATIS (GENITO/STI) Neisseria gonorrhea DNA probe, direct Annual: Patient presents today for an annual exam. Patient states she is doing well and has no complaints. Pap was obtained without difficulty and patient given mammogram order to have scheduled/obtained. Patient requesting to have Cultures obtained at this visit. Orders Placed This Encounter Procedures Bilateral screening mammogram CHLAMYDIA TRACHOMATIS (GENITO/STI) Neisseria gonorrhea DNA probe, direct Follow Up: Patient is to return in one year for annual unless needed otherwise. Documented by Kamille Valera LPN on behalf of: DON Maya documented in this encounter [facility] Clinical Note 02-10-2021 Note Date & Type Note Facility 02-10-2021 Note [facility] [place], [place] NAME: ATIYA DICKSON DATE OF : MEDICAL REC#: [id number] EMBEDDED SOFTWARE ARCHITECT: 1421 SHANIA THOMAS ADMIT DATE: 02/10/2021 08:44:00 METAL EXTRUSION SUPERVISOR DATE: 02/10/2021 11:00 DICTATING PHYSICIAN: ANA MARIA KRAMER DICTATION DATE: 02/10/2021 11:00 OPERATIVE NOTE OPERATION DATE: 02-10-21 ANESTHETIC:General. HISTOPATHOLOGIST: DEZ Lopez PREOPERATIVE DIAGNOSIS: 1. Desires permanent sterilization. 2. Multiparity. POSTOPERATIVE DIAGNOSIS:Same as above. PROCEDURE NAME:Diagnostic laparoscopy with bilateral salpingectomy. URINE OUTPUT: Yellow and clear. BLOOD LOSS:5 mL. FINDINGS: Normal appearing ovary, uterus, and tubes. PROCEDURE: The patient was taken back to the Operating Room where she was given general anesthesia without difficulty. She was then prepped and draped in the normal sterile fashion after being placed in a dorsal lithotomy position. A wet sponge stick was placed into the patient's vagina. Attention was then turned to the patient's abdomen, where a scalpel was used to make a small infraumbilical incision. The S retractors were then used to dissect the underlying layers until the fascia could be seen. The fascia was then grasped with Jordan clamps and tented up. A knife was then used to make a small incision to the fascia. The muscle was identified, at that time two sutures of #0 Vicryl on a GI needle was then used and placed through the fascia. The peritoneum was then identified and entered bluntly. The 10-4 Harmony was then placed into the patient's abdomen. This was confirmed with direct visualization of the bowel, using the laparoscope. The patient's abdomen was then insufflated using approximately 4 liters of CO2 gas. Survey of the patient's abdomen demonstrated ovaries were normal in appearance as well as both tubes. A second and third lateral ports, which was 7-8 in size, and 5mm was then placed laterally after incision was made in the skin under direct visualization. The patient's tube on the patient's right side was identified. Instead of using Filshie clips the LigaSure apparatus was used to come across the mesosalpinx and this was done on the contralateral side. The tube was removed in its entirety. The rt and left lateral port was then moved under direct visualization with excellent hemostasis. All instruments were removed from the patient's abdomen. The fascia was closed using the #0 Vicryl on GI needle. The skin was closed using 4-0 Vicryl subcuticularly. All instruments were removed from the patient's vagina as well. The patient was taken out of the dorsal lithotomy position and placed in the supine position and taken to recovery in stable condition. Sponge, lap and needle counts were correct x2 Electronically Authenticated and Edited by: Ana Maria Kramer DO on 02/10/2021 12:17 PM EDT IF Signed and Approved by: DR ANA MARIA KRAMER . 02/10/2021 12:17:00 [facility] Evaluation note Note Date & Type Note Facility Evaluation note Diagnosis Well woman exam with routine gynecological exam Routine gynecological examination Breast cancer screening by mammogram Exposure to STD documented in this encounter [facility] Evaluation note Note Date & Type Note Facility Evaluation note Diagnosis Annual physical exam- Primary Routine general medical examination at a health care facility Sebaceous cyst documented in this encounter [facility] Evaluation note Note Date & Type Note Facility Evaluation note Diagnosis Well woman exam with routine gynecological exam Routine gynecological examination Encounter for screening mammogram for malignant neoplasm of breast documented in this encounter [facility] Instructions Note Date & Type Note Facility Instructions Not on filedocumented in this en counter [facility] Reason for referral (narrative) Consultation (Routine) - Pending Review Note Date & Type Note Facility Reason for referral (narrati ve) Specialty Diagnoses / Procedures Referred By Gregorio ureña Referred To Contact Dermatology Diagnoses Sebaceous cyst Fatuma Martinez MD [address] [place] [address] Mily Peacock MD [address] [place] [address] Referral ID Status Reason Start Date Expiration Date Visits Requested Visits Authorized [id number] Pending Review Specialty Services Required 05/19/2024 05/19/2025 1 1 [facility] Summary Purpose Family History No Family History Records FoundNo Family History Records FoundNo Family History Records Found Advance Directives No Advanced Directives Records FoundNo Advanced Directives Records FoundNo Advanced Directives Records Found Additional Source Comments INFORMATION SOURCE (unrecogn ized section and content) DATE CREATED AUTHOR 07/31/2021 [facility] DATE CREATED AUTHOR AUTHOR'S ORGANIZ ATION 05/12/2024 [facility] EPIC DATE CREATED AUTHOR AUTHOR'S ORGANIZ ATION 05/21/2024 [facility] Care Teams (unrecognized sec tion and content) Vocational Placement Specialist Relationship Specialty Start Date End Date Fatuma Martinez MD [address] [place], [place] [id number] PCP - General Family Medicine 05/11/24 Vocational Placement Specialist Relationship Specialty Start Date End Date Fatuma Martinez MD [address] [place] [address] PCP - General Family Medicine 05/11/24 Vocational Placement Specialist Relationship Specialty Start Date End Date Fatuma Martinez MD [address] [place] [address] PCP - General Internal Medicine 05/19/24 Vocational Placement Specialist Relationship Specialty Start Date End Date Fatuma Martinez MD PCP - General Family Medicine 05/11/24 Vocational Placement Specialist Relationship Specialty Start Date End Date Fatuma Martinez MD PCP - General Family Medicine 05/11/24 Reason for Visit (unrecogniz ed section and content) Reason Comments Well Women Visit Reason Comments Establish Care Hair/Scalp Problem FOR RECORDS PERTAINING TO PATIENTS WHO ARE OR HAVE BEEN ENROLLED IN A CHEMICAL DEPENDENCY/SUBSTANCEABUSE PROGRAM, SOME INFORMATION MAY BE OMITTED. This clinical summary was aggregated from multiple sources. Caution should be exercised in using it in the provision of clinical care. This summary normalizes information from multiple sources, and as a consequence, information in this document may materially change the coding, format and clinical context of patient data. In addition, data may be omitted in some cases. CLINICAL DECISIONS SHOULD BE BASED ON THE PRIMARY CLINICAL RECORDS. [facility], [facility]. provides no warranty or guarantee of the accuracy or completeness of information in this document.
[2025-05-21 16:09] LABS: Age Gdln ACOG Testing Note (.); IGP, Aptima HPV, rfx 16/18,45 Note (.)
== END 2025-05-17 20:02 | disposition home or self-care (01) ==
LOC: LAB 20:01
PROVIDERS: Visit Provider Physician Assistant
DX: Z01.419 Encounter for gynecological examination (general) (routine) without abnormal findings (principal)
CPT/HCPCS: 87624; 88175